=== PATIENT | female | born 1990 | race Caucasian/White ===

== ENCOUNTER 2020-12-19 14:17 | Outpatient (CLI) | payer OTHER ==
[2020-12-19 14:52] VITALS: BP 109/74
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
== END 2020-12-19 14:18 | disposition home or self-care (01) ==
LOC: SC 14:17
PROVIDERS: ATTEND Nurse Practitioner Family
DX: R06.83 Snoring (principal); R51.9 Headache, unspecified; R06.81 Apnea, not elsewhere classified; G47.8 Other sleep disorders; R41.89 Other symptoms and signs involving cognitive functions and awareness; G47.10 Hypersomnia, unspecified; E66.9 Obesity, unspecified; Z68.38 Body mass index [BMI] 38.0-38.9, adult
CPT/HCPCS: 99203; 99212

== ENCOUNTER 2021-01-15 10:10 | Emergency (ER) | payer OTHER ==
[2021-01-15 10:20] VITALS: BP 132/85
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
[2021-01-15] MEDS ORDERED: IBUPROFEN 600 MG TABLET PO STA (11:20)
[2021-01-15] MEDS ORDERED: ACETAMINOPHEN 325 MG TABLET PO STA (11:20)
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
== END 2021-01-15 13:11 | disposition home or self-care (01) ==
LOC: ED 10:10
DX: M54.6 Pain in thoracic spine (principal); V89.2XXD Person injured in unspecified motor-vehicle accident, traffic, subsequent encounter
CPT/HCPCS: 72125; 72128; 99283; 99284; A9270

== ENCOUNTER 2021-03-12 20:30 | Outpatient (CLI) | payer OTHER | END 2021-03-12 20:31 | disposition home or self-care (01) | LOC: SC 20:30 | PROVIDERS: ATTEND Nurse Practitioner Family | DX: R06.83 Snoring (principal); R06.81 Apnea, not elsewhere classified; G47.8 Other sleep disorders; R53.83 Other fatigue; G47.61 Periodic limb movement disorder; G47.10 Hypersomnia, unspecified; F81.9 Developmental disorder of scholastic skills, unspecified | CPT/HCPCS: 95810 ==

== ENCOUNTER 2021-03-28 13:41 | Outpatient (CLI) | payer OTHER ==
--- NOTE | 2021-03-28 13:50 | SLEEP CARE CONSULTATION ---
Information from patient questionnaire entered by Kady Velazquez MA. I have reviewed and concur with the information entered by Kady Velazquez MA. This document represents the service I personally performed and the decisions made by , Lyly Peres ARNP. History of Present Illness Service Date and Time: 03/28/2021 1340 Initial [place] Sleepiness Scale score: 16 (in 2020) Current [place] Sleepiness Scale score: 17 Additional HPI information: DEREK VAZQUEZ returns via video Telehealth visit for follow up and results of the recently performed polysomnography. The patient was informed of the following findings: No significant sleep disordered breathing with an average AHI of 2.7 and laith oxygen saturation of 90%. Patient had moderate periodic leg movements of sleep that did not interrupt her sleep pattern. I explained the pathophysiology behind obstructive sleep apnea. Patient does not have sleep apnea and was advised how weight gain could increase the risk of developing sleep apnea in the future. I strongly encouraged the patient to lose weight. Patient has light snoring. Snoring can be reduced by weight loss. Weight loss is best achieved with diet consult. Patient instructed to contact PCP for referral. Snoring can also be treated with an oral appliance from a dentist. Advised to check insurance coverage. In addition, an ENT evaluation can be do to see if other treatment is indicated. Patient counseled not drink alcohol less than 4 hours before bedtime as it can increase snoring and apnea. Patient was cautioned about risks of drowsy driving until sleepiness symptoms resolve. Sleep Study - Results Type of Sleep Study: Polysomnography Prior sleep studies: No Polysomnography/Home Sleep Study results: IMPRESSION: The quality of the study is good. The patient had slightly reduced sleep efficiency due to several awakenings at the beginning of the night. The sleep architecture was relatively normal considering the first-night effect. Respiratory monitoring showed no significant sleep disordered breathing sleep-disordered breathing (AHI = 2.7) ort hypoxia (laith oxygen saturation of 90%). The patient slept adequately in supine position (supine AHI = 2.1; non-supine = 3.59). Snore was light in intensity. There was moderate periodic leg movement of sleep not associated with sleep fragmentation. Cardiac rhythm was normal sinus rhythm without significant arrhythmia. No abnormal behavior (parasomnia) observed during the night. Allergies and Home Medications Home medication list reviewed: Yes (no changes) Review of Systems Review of systems same as previous: No (possible Covid w/ symptoms) Physical Exam Vital signs obtained and entered by: Telehealth visit to reduce exposure during Covid pandemic Height: 5 ft 9 in Impression and Plan 1. Periodic limb movement, moderate, that did not fragment patients sleep. Periodic limb movement of sleep (PLMS) is characterized by episodes of repetitive limb movements that occur during sleep and usually involve the lower limbs. The etiology is unknown but can be associated with restless leg syndrome (RLS), neuropathy, spinal cord diseases, kidney disease, rheumatological disorders, narcolepsy, obstructive sleep apnea, and REM sleep behavior disorder. Other factors that can increase PLMS and/or RLS are heredity and iron deficiency as reflected by a low serum ferritin level below 50 to 75mcg / L. Caffeine can also aggravate PLMS and should be avoided. Sleep hygiene methods can also improve sleep as well as lifestyle changes such as regular exercise. Patient was advised that no treatment is needed at this time. If symptoms increase, then further evaluation is indicated. 2. Snoring but no significant sleep disordered breathing. Patient advised that often weight loss will reduce snoring as well as apnea risk. An oral appliance can also be used for snoring. This would require a dental consultation. Patient cautioned not to use other online appliances as can cause bite issues. A list of accredited dentists in [facility] and one local dentist who makes oral appliances is available in the office. Patient is advised to check if insurance will cover. An ENT consult can also be helpful to determine if any other treatment is an option. * Attempt to lose weight * Avoid alcohol consumption near bedtime * The patient is cautioned about driving until sleepiness is completely resolved. * Return as needed for follow up. Counseling Topics: Weight loss health impact Visit Type: Telehealth Video Video Type: VSee Patient Location: Home Location of Provider: Office Patient agrees and consents to this telehealth visit type: Yes Patient agrees to have their insurance billed: Yes Time Spent with Patient (minutes): 10 Provider Statement: I spent 100% of the Telehealth Video Call with the patient with greater than 50% spent counseling the patient and coordination of care.
== END 2021-03-28 13:42 | disposition home or self-care (01) ==
LOC: SC 13:41
PROVIDERS: ATTEND Nurse Practitioner Family
DX: G47.61 Periodic limb movement disorder (principal); R06.83 Snoring

== ENCOUNTER 2021-06-20 11:48 | Outpatient (CLI) | payer OTHER ==
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
== END 2021-06-20 23:59 | disposition home or self-care (01) ==
LOC: DI.N 11:48
PROVIDERS: ATTEND Physician Assistant Medical
DX: J06.9 Acute upper respiratory infection, unspecified (principal); Z20.822 Contact with and (suspected) exposure to COVID-19

== ENCOUNTER 2021-06-24 19:21 | Emergency (ER) | payer OTHER ==
[2021-06-24 19:31] VITALS: BP 132/89
[2021-06-24 20:14] LABS: RAPID STREP SCREEN Negative (Negative)
--- NOTE | 2021-06-24 20:48 | ED Physician Documentation ---
PD HPI HEENT - Stated complaint Stated Complaint: SORE THROAT,BODY PX,FEVER - Chief complaint Chief Complaint: Resp - History obtained from History obtained from: Patient - Additional information Additional information: Previously healthy woman has been sick for about a week with cough, sore throat, fever, loss of voice. The cough is productive of yellow sputum. She has had a fever up to 101. She is COVID immunized but not boosted. She was seen in the clinic on Thursday, checked for COVID and strep which were negative and administered what sounds like dexamethasone without relief. She was also given a prescription for Tessalon which she is only taken 1 dose of. Review of Systems Constitutional: reports: Fever, Myalgias, Fatigue Nose: reports: Rhinorrhea / runny nose Throat: reports: Sore throat Respiratory: reports: Cough. denies: Dyspnea PD PAST MEDICAL HISTORY - Past Medical History Cardiovascular: None Respiratory: None Musculoskeletal: None - Present Medications Home Medications: Ambulatory Orders Medication Instructions Recorded Confirmed HYDROcod/ACETAM 5/325 [[place] 5/325] 1 ea PO Q6H PRN #18 tablet 01/15/21 Naproxen 500 mg PO BID 10 Days #20 tab 01/15/21 tiZANidine [Zanaflex] 4 mg PO Q8H PRN #25 tablet 01/15/21 Doxycycline Hyclate 100 mg PO BID #14 tab.sr 06/24/21 guaiFENesin/CODEINE [Robitussin AC] 5 - 10 ml PO Q6H PRN #120 ml 06/24/21 - Allergies Allergies/Adverse Reactions: Allergies Allergy/AdvReac Type Severity Reaction Status Date / Time No Known Drug Allergies Allergy Verified 06/24/21 19:31 - Social History Does the pt smoke?: No Smoking Status: Never smoker PD ED PE NORMAL - Vitals Vital signs reviewed: Yes - General General: Alert and oriented X 3, No acute distress - HEENT HEENT: PERRL, EOMI, Ears normal, Pharynx benign, Other (Large but noninflamed tonsils. Slightly laryngitic voice.) - Neck Neck: Supple, no meningeal sign, No bony TTP - Cardiac Cardiac: RRR, No murmur - Respiratory Respiratory: No respiratory distress, Clear bilaterally - Abdomen Abdomen: Non tender - Derm Derm: Normal color, Warm and dry, No rash - Neuro Neuro: Alert and oriented X 3, Normal speech Results - Vitals Vitals: Vital Signs - 24 hr 06/24/21 19:24 Temperature 36.9 C Heart Rate 95 Respiratory 20 Rate Blood Pressure 132/89 H O2 Saturation 99 Oxygen O2 Source Room air - Labs Labs: Laboratory Tests 06/24/21 06/24/21 19:45 19:45 Nasal Adenovirus (PCR) NOT DETECTED Nasal B. parapertussis DNA (PCR) NOT DETECTED Nasal Coronavir 229E PCR NOT DETECTED Nasal Coronavir HKU1 PCR NOT DETECTED Nasal Coronavir NL63 PCR NOT DETECTED Nasal Coronavir OC43 PCR NOT DETECTED Nasal Enterovir/Rhinovir PCR NOT DETECTED Nasal Influenza B PCR NOT DETECTED Nasal Influenza A PCR NOT DETECTED Nasal Parainfluen 1 PCR NOT DETECTED Nasal Parainfluen 2 PCR NOT DETECTED Nasal Parainfluen 3 PCR NOT DETECTED Nasal Parainfluen 4 PCR NOT DETECTED Nasal RSV (PCR) NOT DETECTED Nasal B.pertussis DNA PCR NOT DETECTED Nasal C.pneumoniae (PCR) NOT DETECTED Jeff Human Metapneumo PCR NOT DETECTED Nasal M.pneumoniae (PCR) NOT DETECTED Nasal SARS-CoV-2 (PCR) NOT DETECTED Group A Strep Rapid Negative PD MEDICAL DECISION MAKING - ED course ED course: 30-year-old woman presents for viral syndrome now with more productive cough. Her son tested positive today for human metapneumovirus so presume she started out with that and now has developed more of a bacterial bronchitis given her negative bio fire. Departure - Departure Disposition: 01 Home, Self Care Clinical Impression: Bronchitis Condition: Good Record reviewed to determine appropriate education?: Yes Instructions: ED Upper Resp Infec Abx Tx Prescriptions: Doxycycline Hyclate 100 mg PO BID #14 tab.sr guaiFENesin/CODEINE [Robitussin AC] 5 - 10 ml PO Q6H PRN #120 ml PRN Reason: Cough Comments: I sent your prescriptions electronically to [facility] in [place]. I suspect you had to the metapneumovirus that your son had but now with clear that and have developed bronchitis. For this I am prescribing some antibiotics and cough syrup. Cough syrup contains codeine, do not drink or drive with it. Return for new or worsening symptoms. Follow-up with your doctor towards the end of the week if not better. Discharge Date/Time: 06/24/21 21:14
[2021-06-24 20:58] LABS: B. PARAPERTUSSIS- RESP PCR PAN NOT DETECTED; B. PERTUSSIS- RESP PCR PANEL NOT DETECTED; C. PNEUMONIAE- RESP PCR PANEL NOT DETECTED; CORONAVIRUS 229E-RESP PCR NOT DETECTED; CORONAVIRUS HKU1-RESP PCR NOT DETECTED; CORONAVIRUS NL63-RESP PCR NOT DETECTED; CORONAVIRUS OC43-RESP PCR NOT DETECTED; HUMAN METAPNEUMOVIRUS NOT DETECTED; INFLUENZA A- RESP PCR PANEL NOT DETECTED; INFLUENZA B - RESP PCR PANEL NOT DETECTED; M. PNEUMONIAE- RESP PCR PANEL NOT DETECTED; PARAINFLUENZA VIRUS 1 NOT DETECTED; PARAINFLUENZA VIRUS 2 NOT DETECTED; PARAINFLUENZA VIRUS 3 NOT DETECTED; PARAINFLUENZA VIRUS 4 NOT DETECTED; RHINOVIRUS/ENTEROVIRUS NOT DETECTED; RSV- RESP PCR PANEL NOT DETECTED; SARS-CoV-2 -RESP PCR PANEL NOT DETECTED
[2021-06-24] MEDS ORDERED: guaiFENesin/CODEINE 5 ML UDC PO STA (21:06)
[2021-06-24] MEDS ORDERED: DOXYCYCLINE 100 MG TABLET PO STA (21:06)
== END 2021-06-24 21:14 | disposition home or self-care (01) ==
LOC: ED 19:21
DX: J40 Bronchitis, not specified as acute or chronic (principal); Z20.822 Contact with and (suspected) exposure to COVID-19
CPT/HCPCS: 87070; 87430; 87633; 99283; A9270

== ENCOUNTER 2021-06-27 05:25 | Emergency (ER) | payer OTHER ==
[2021-06-27 05:38] VITALS: BP 137/62
[2021-06-27] MEDS ORDERED: PENICILLIN VK 250 MG TABLET PO STA (06:18)
[2021-06-27] MEDS ORDERED: IBUPROFEN 800 MG TABLET PO STA (06:19)
--- NOTE | 2021-06-27 06:21 | ED Physician Documentation ---
History of Present Illness - Stated complaint Stated Complaint: SORE THROAT/CAN'T SLEEP - Chief complaint Chief Complaint: General - History obtained from History obtained from: Patient - Additonal information Additional information: Patient is a 30-year-old female who has been having a sore throat for 6 days. She was initially seen at [facility] walk[facility] and had a strep swab done. She was given Tessalon Perles and dexamethasone. She was then seen on Thursday and thought to have bronchitis and started on doxycycline. She has been taking the antibiotic but does not feel improved. She reports significant discomfort in her throat. She has been able to drink fluids but reports it is painful. She has been coughing and reports occasional vomiting after coughing but otherwise denies nausea. Denies fever, chest pain, shortness of breath, abdominal pain. Her son is also being evaluated with URI symptoms and was recently positive for human [place] pneumo virus Review of Systems Constitutional: denies: Fever Nose: denies: Congestion Throat: reports: Sore throat Cardiac: denies: Chest pain / pressure, Palpitations Respiratory: reports: Cough. denies: Dyspnea GI: reports: Vomiting. denies: Abdominal Pain, Nausea (Posttussive) Skin: denies: Rash Musculoskeletal: denies: Back pain Neurologic: denies: Headache PD PAST MEDICAL HISTORY - Past Medical History Cardiovascular: None Respiratory: None Musculoskeletal: None - Present Medications Home Medications: Ambulatory Orders Medication Instructions Recorded Confirmed HYDROcod/ACETAM 5/325 [[place] 5/325] 1 ea PO Q6H PRN #18 tablet 01/15/21 Naproxen 500 mg PO BID 10 Days #20 tab 01/15/21 tiZANidine [Zanaflex] 4 mg PO Q8H PRN #25 tablet 01/15/21 Doxycycline Hyclate 100 mg PO BID #14 tab.sr 06/24/21 guaiFENesin/CODEINE [Robitussin AC] 5 - 10 ml PO Q6H PRN #120 ml 06/24/21 Ibuprofen [Motrin] 800 mg PO Q8H PRN #30 tablet 06/27/21 Penicillin V Potassium 500 mg PO Q8HR 10 Days #30 tablet 06/27/21 - Allergies Allergies/Adverse Reactions: Allergies Allergy/AdvReac Type Severity Reaction Status Date / Time No Known Drug Allergies Allergy Verified 06/27/21 05:38 - Social History Does the pt smoke?: No Smoking Status: Never smoker PD ED PE NORMAL - General General: Alert and oriented X 3, No acute distress, Well developed/nourished - HEENT HEENT: Atraumatic, Other (Bilateral white tonsillar exudate, tonsillar enlargement, no signs of peritonsillar abscess, normal speech, patient is tolerating her secretions) - Neck Neck: Supple, no meningeal sign, Other (Right anterior cervical lymphadenopathy). No: No adenopathy - Cardiac Cardiac: RRR, No murmur, Strong equal pulses - Respiratory Respiratory: No respiratory distress, Clear bilaterally - Abdomen Abdomen: Soft, Non tender - Derm Derm: Normal color, No rash - Extremities Extremities: No edema - Neuro Neuro: Normal speech - Psych Psych: Normal mood, Normal affect Results - Vitals Vitals: Vital Signs - 24 hr 06/27/21 05:29 Temperature 36 C L Heart Rate 101 H Respiratory 18 Rate Blood Pressure 137/62 H O2 Saturation 97 Oxygen O2 Source Room air PD MEDICAL DECISION MAKING - ED course Complexity details: reviewed results, d/w patient ED course: Patient with sore throat not improving on doxycycline. On review of previous labs, her strep culture is positive. Patient has not been improving on doxycycline. While it can be used for strep infections we discussed changing the antibiotic to first-line agent as she has not been showing improvement. Patient is agreeable to this. She is also agreeable to trial of Motrin for pain and inflammation. Patient is able to tolerate p.o. There is no signs of oral abscess or airway compromise. Patient was encouraged to complete the new course of antibiotics as well as continue to hydrate. She is aware of return precautions. Departure - Departure Disposition: 01 Home, Self Care Clinical Impression: Strep pharyngitis Condition: Stable Instructions: ED Strep Pharyngitis Conf Prescriptions: Penicillin V Potassium 500 mg PO Q8HR 10 Days #30 tablet Ibuprofen [Motrin] 800 mg PO Q8H PRN #30 tablet PRN Reason: PAIN &/OR FEVER Comments: Ivet you were evaluated for your sore throat which has not been improving. Your strep culture earlier this week was positive. You had been started on an antibiotic which can cover for strep but it is not usually the first-line antibiotic used. As your symptoms have not improved we have discussed changing your antibiotic. Please stop taking the doxycycline. A prescription for penicillin was sent to the [facility] in [place]. Please start this antibiotic and finish the entire course. Please also use Motrin or Tylenol to help with any pain or discomfort. It is important to stay hydrated. Please drink small amounts of fluids frequently through the day as this may help with your pain and alleviate your cough. You can also try a small amount of honey to see if this helps with your cough. If anytime it seems that you are having trouble breathing or swallowing, have any concerns please return to the emergency department. Discharge Date/Time: 06/27/21 06:30
== END 2021-06-27 06:30 | disposition home or self-care (01) ==
LOC: ED 05:25
DX: J02.0 Streptococcal pharyngitis (principal)
CPT/HCPCS: 99282; 99284; A9270

== ENCOUNTER 2021-07-05 04:38 | Emergency (ER) | payer OTHER ==
[2021-07-05 04:47] VITALS: BP 145/75
[2021-07-05] MEDS ORDERED: predniSONE 20 MG TABLET PO STA (05:21)
[2021-07-05 05:26] LABS: RAPID STREP SCREEN Negative (Negative)
--- NOTE | 2021-07-05 05:26 | ED Physician Documentation ---
PD HPI HEENT - Stated complaint Stated Complaint: THROAT PX/COUGH - Chief complaint Chief Complaint: Heent - History obtained from History obtained from: Patient - Additional information Additional information: The patient comes to the emergency department chief complaint of ongoing sore throat and cough. She states that about 3 weeks ago, she began to have runny nose and cough With a mild sore throat. She was seen in the urgent care and was told that it was probably just viral or allergies. The patient was seen a couple of days later in the emergency department and a strep test was positive so she was started on doxycycline. She came back a few days after that and was told that her antibiotics should be switched and so she was put on penicillin VK. Patient took a 10-day course of this and finished it yesterday, but states that her cough is gotten worse. She also still has a sore throat. Patient has a little bit of congestion as well. She has 2 young children at home who also have asked upper respiratory type symptoms. The patient denies fevers or chills. She does not have any underlying medical problems. No shortness of breath. No vomiting or diarrhea. No other complaints at this time. Review of Systems Ten Systems: 10 systems reviewed and negative Constitutional: reports: Reviewed and negative Eyes: reports: Reviewed and negative Ears: reports: Reviewed and negative Nose: reports: Congestion Throat: reports: Sore throat Cardiac: reports: Reviewed and negative Respiratory: reports: Cough GI: reports: Reviewed and negative : reports: Reviewed and negative Skin: reports: Reviewed and negative Musculoskeletal: reports: Reviewed and negative Neurologic: reports: Reviewed and negative Psychiatric: reports: Reviewed and negative Endocrine: reports: Reviewed and negative Immunocompromised: reports: Reviewed and negative PD PAST MEDICAL HISTORY - Past Medical History Cardiovascular: None Respiratory: None Musculoskeletal: None - Present Medications Home Medications: Ambulatory Orders Medication Instructions Recorded Confirmed HYDROcod/ACETAM 5/325 [[place] 5/325] 1 ea PO Q6H PRN #18 tablet 01/15/21 07/05/21 Naproxen 500 mg PO BID 10 Days #20 tab 01/15/21 07/05/21 tiZANidine [Zanaflex] 4 mg PO Q8H PRN #25 tablet 01/15/21 07/05/21 Doxycycline Hyclate 100 mg PO BID #14 tab.sr 06/24/21 07/05/21 guaiFENesin/CODEINE [Robitussin AC] 5 - 10 ml PO Q6H PRN #120 ml 06/24/21 0 07/05/21 Ibuprofen [Motrin] 800 mg PO Q8H PRN #30 tablet 06/27/21 07/05/21 Penicillin V Potassium 500 mg PO Q8HR 10 Days #30 tablet 06/27/21 07/05/21 predniSONE [Deltasone] 60 mg PO DAILY 3 Days #9 tablet 07/05/21 - Allergies Allergies/Adverse Reactions: Allergies Allergy/AdvReac Type Severity Reaction Status Date / Time No Known Drug Allergies Allergy Verified 07/05/21 04:50 - Social History Does the pt smoke?: No Smoking Status: Never smoker PD ED PE NORMAL - Vitals Vital signs reviewed: Yes - General General: Alert and oriented X 3, No acute distress, Well developed/nourished - HEENT HEENT: Atraumatic, PERRL, EOMI, Moist mucous membranes, Pharynx benign - Neck Neck: Supple, no meningeal sign - Cardiac Cardiac: RRR, No murmur, Strong equal pulses - Respiratory Respiratory: No respiratory distress, Clear bilaterally - Derm Derm: Normal color, Warm and dry, No rash - Extremities Extremities: No deformity - Neuro Neuro: Alert and oriented X 3 - Psych Psych: Normal mood, Normal affect Results - Vitals Vitals: Vital Signs - 24 hr 07/05/21 04:42 Temperature 36 C L Heart Rate 100 Respiratory 18 Rate Blood Pressure 145/75 H O2 Saturation 98 Oxygen O2 Source Room air - Labs Labs: Laboratory Tests 07/05/21 07/05/21 05:01 05:01 Nasal Adenovirus (PCR) NOT DETECTED Nasal B. parapertussis DNA (PCR) NOT DETECTED Nasal Coronavir 229E PCR NOT DETECTED Nasal Coronavir HKU1 PCR NOT DETECTED Nasal Coronavir NL63 PCR NOT DETECTED Nasal Coronavir OC43 PCR NOT DETECTED Nasal Enterovir/Rhinovir PCR NOT DETECTED Nasal Influenza B PCR NOT DETECTED Nasal Influenza A PCR NOT DETECTED Nasal Parainfluen 1 PCR NOT DETECTED Nasal Parainfluen 2 PCR NOT DETECTED Nasal Parainfluen 3 PCR NOT DETECTED Nasal Parainfluen 4 PCR NOT DETECTED Nasal RSV (PCR) NOT DETECTED Nasal B.pertussis DNA PCR NOT DETECTED Nasal C.pneumoniae (PCR) NOT DETECTED Jeff Human Metapneumo PCR DETECTED A Nasal M.pneumoniae (PCR) NOT DETECTED Nasal SARS-CoV-2 (PCR) NOT DETECTED Group A Strep Rapid Negative PD MEDICAL DECISION MAKING - ED course Complexity details: considered differential, d/w patient ED course: The patient's throat was benign today. She had pictures on her phone from her throat before antibiotics and they showed enlarged, beefy red tonsils with white exudates, a very convincing picture for strep pharyngitis. I discussed with the patient that her throat appears to have drastically improved with antibiotics and there is no such appearance now. I suspect that the patient is likely picked up another viral illness, very likely from her children, and this is the reason for the uptick in cough. The patient is afebrile and in no respiratory distress and at this point, symptomatic management is advisable. We have sent a viral panel that is pending at this time. Rapid strep is also pending. The patient has been treated symptomatically with prednisone in the emergency department and will be given a prescription for the same. She is advised to follow-up with her primary care physician if she is not feeling better in a week. Departure - Departure Disposition: 01 Home, Self Care Clinical Impression: Upper respiratory infection Qualifiers: URI type: unspecified viral URI Qualified Code(s): J06.9 - Acute upper respiratory infection, unspecified Condition: Stable Instructions: ED URI Viral Prescriptions: predniSONE [Deltasone] 60 mg PO DAILY 3 Days #9 tablet Comments: A viral panel was sent and is positive for human metapneumovirus, and upper respiratory virus. Your strep test is negative. Your throat appears drastically better than it did in the pictures you have shown and does not at all have the appearance of strep at this time. In fact, your tonsils actually appear normal. There are many upper respiratory viruses going around right now, And many have the same symptoms. You may have started with another virus, then gotten strep on top of it, and then picked up something else. Additionally, the virus you have now is the same virus one of your kids had tested positive for earlier, and you probably picked up this illness from him. This will have to pass on its own. You may take ibuprofen, Tylenol, and cough preparations if you wish. A prescription for prednisone has been sent to [facility] in [place] to help with your throat discomfort. Please follow-up with your primary care physician if you are not feeling better after week.
[2021-07-05 06:00] LABS: B. PARAPERTUSSIS- RESP PCR PAN NOT DETECTED; B. PERTUSSIS- RESP PCR PANEL NOT DETECTED; C. PNEUMONIAE- RESP PCR PANEL NOT DETECTED; CORONAVIRUS 229E-RESP PCR NOT DETECTED; CORONAVIRUS HKU1-RESP PCR NOT DETECTED; CORONAVIRUS NL63-RESP PCR NOT DETECTED; CORONAVIRUS OC43-RESP PCR NOT DETECTED; HUMAN METAPNEUMOVIRUS DETECTED; INFLUENZA A- RESP PCR PANEL NOT DETECTED; INFLUENZA B - RESP PCR PANEL NOT DETECTED; M. PNEUMONIAE- RESP PCR PANEL NOT DETECTED; PARAINFLUENZA VIRUS 1 NOT DETECTED; PARAINFLUENZA VIRUS 2 NOT DETECTED; PARAINFLUENZA VIRUS 3 NOT DETECTED; PARAINFLUENZA VIRUS 4 NOT DETECTED; RHINOVIRUS/ENTEROVIRUS NOT DETECTED; RSV- RESP PCR PANEL NOT DETECTED; SARS-CoV-2 -RESP PCR PANEL NOT DETECTED
== END 2021-07-05 06:13 | disposition home or self-care (01) ==
LOC: ED 04:38
DX: J06.9 Acute upper respiratory infection, unspecified (principal); Z20.822 Contact with and (suspected) exposure to COVID-19
CPT/HCPCS: 87070; 87430; 87633; 99282; 99283; J7512

== ENCOUNTER 2021-07-10 15:55 | Outpatient (CLI) | payer OTHER ==
--- NOTE | 2021-07-10 16:22 | XRAY Report ---
PROCEDURE: Chest 2 View X-Ray INDICATIONS: FATIGUE AND MALAISE TECHNIQUE: 2 view(s) of the chest. COMPARISON: June 20, 2021 FINDINGS: SUPPORT DEVICES: None. LUNGS/PLEURA: Left lower lung zone plate atelectasis/scarring. No pleural effusion or space-occupying pneumothorax. MEDIASTINUM: The cardiomediastinal silhouette is within normal limits. BONES/SOFT TISSUES: No acute abnormality. IMPRESSION: 1.Left basilar plate atelectasis/scar. Reviewed by: Keven Cevallos MD on 07/10/2021 4:21 PM PDT Approved by: Keven Cevallos MD on 07/10/2021 4:21 PM PDT Station ID: [id number]
[2021-07-10 20:50] LABS: BASOPHILS # (AUTO) 0.1 10^3/uL (0.0-0.1); BASOPHILS % (AUTO) 0.4 %; EOSINOPHILS # (AUTO) 0.2 10^3/uL (0.0-0.7); EOSINOPHILS % (AUTO) 1.2 %; HCT - HEMATOCRIT 35.8 % (37.0-47.0); HGB - HEMOGLOBIN 11.7 g/dL (12.0-16.0); LYMPHOCYTES # (AUTO) 3.6 10^3/uL (1.5-3.5); LYMPHOCYTES % (AUTO) 23.9 %; MEAN CORPUSCULAR HEMOGLOBIN 29.5 pg (27.0-31.0); MEAN CORPUSCULAR HGB CONC 32.7 g/dL (32.0-36.0); MEAN CORPUSCULAR VOLUME 90.4 fL (81.0-99.0); MEAN PLATELET VOLUME 9.7 fL (7.9-10.8); MONOCYTES # (AUTO) 1.1 10^3/uL (0.0-1.0); MONOCYTES % (AUTO) 7.4 %; NEUTROPHILS # (AUTO) 10.2 10^3/uL (1.5-6.6); NEUTROPHILS % (AUTO) 66.6 %; PLT - PLATELET COUNT 509 10^3/uL (130-450); RED BLOOD COUNT 3.96 10^6/uL (4.20-5.40); RED CELL DISTRIBUTION WIDTH 14.3 % (12.0-15.0); WHITE BLOOD COUNT 15.3 x10^3/uL (4.8-10.8)
[2021-07-10 21:04] LABS: ALBUMIN 3.7 g/dL (3.2-5.5); ALKALINE PHOSPHATASE 74 IU/L (42-121); ALT ALANINE AMINOTRANSFERASE 16 IU/L (10-60); AST ASPARTATE AMINOTRANSFERASE 17 IU/L (10-42); BILIRUBIN,TOTAL 0.6 mg/dL (0.2-1.0); BUN - BLOOD UREA NITROGEN 14 mg/dL (6-20); CALCIUM 9.1 mg/dL (8.5-10.3); CARBON DIOXIDE - CO2 27 mmol/L (21-32); CHLORIDE 100 mmol/L (101-111); CREATININE 0.8 mg/dL (0.4-1.0); GFR - MDRD 84 (>89); GLUCOSE 130 mg/dL (70-100); POTASSIUM 3.7 mmol/L (3.5-5.0); SODIUM 136 mmol/L (135-145); TOTAL PROTEIN 7.5 g/dL (6.7-8.2)
[2021-07-10 21:05] LABS: CRP - C-REACTIVE PROTEIN < 1.0 mg/dL (0-1.0)
== END 2021-07-10 23:59 | disposition home or self-care (01) ==
LOC: DI.N 15:55
PROVIDERS: ATTEND Registered Nurse
DX: R53.83 Other fatigue (principal); R53.81 Other malaise; R05.1 Acute cough; R91.8 Other nonspecific abnormal finding of lung field
CPT/HCPCS: 36415; 80053; 85025; 85651; 86140

== ENCOUNTER 2021-08-13 11:22 | Outpatient (CLI) | payer OTHER ==
[2021-08-13 22:29] LABS: BACTERIAL VAGINOSIS DNA POSITIVE (NEGATIVE); CANDIDA GROUP DNA NEGATIVE (NEGATIVE); CANDIDA KRUSEI DNA NEGATIVE (NEGATIVE); TRICHOMONAS VAGINALIS DNA POSITIVE (NEGATIVE)
[2021-08-13 22:30] LABS: CANDIDA GLABRATA DNA NEGATIVE (NEGATIVE)
[2021-08-13 23:55] LABS: CHLAMYDIA TRACHOMATIS DNA NEGATIVE (NEGATIVE); NEISSERIA GONORRHOEAE DNA NEGATIVE (NEGATIVE)
== END 2021-08-13 11:23 | disposition home or self-care (01) ==
LOC: LAB.N 11:22
PROVIDERS: ATTEND Physician Assistant
DX: N76.0 Acute vaginitis (principal)
CPT/HCPCS: 81514; 87491; 87591; 87661

== ENCOUNTER 2022-02-04 17:29 | Emergency (ER) | payer OTHER ==
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
[2022-02-04 21:44] LABS: MUDS CUTOFF CONCENTRATIONS CUTOFF CONC BELOW:
[2022-02-04 21:46] LABS: BILIRUBIN,URINE NEGATIVE (NEGATIVE); GLUCOSE, URINE (UA) NEGATIVE (NEGATIVE); KETONES,URINE (UA) TRACE mg/dL (NEGATIVE); LEUKOCYTE ESTERASE, URINE NEGATIVE (NEGATIVE); NITRITE,URINE NEGATIVE (NEGATIVE); OCCULT BLOOD,URINE NEGATIVE (NEGATIVE); PROTEIN,URINE TRACE mg/dL (NEGATIVE); UROBILINOGEN,URINE 0.2 (NORMAL) E.U./dL (NORMAL)
[2022-02-04 21:50] LABS: CLARITY,URINE HAZY (CLEAR); HCG UR QUAL NEGATIVE
[2022-02-04 21:57] LABS: BACTERIA,URINE Few /HPF (None Seen); MUCUS,URINE Moderate Strands; RBC,URINE 0-5 /HPF (0-5); SQUAMOUS EPITHELIAL CELL,UR MANY Squamous (<= Few); WBC,URINE 0-3 /HPF (0-5)
[2022-02-04 21:59] LABS: AMPHETAMINE SCREEN,URINE NEGATIVE (NEGATIVE); BARBITURATE SCREEN,UR NEGATIVE (NEGATIVE); BENZODIAZEPINES SCREEN, URINE NEGATIVE (NEGATIVE); COCAINE SCREEN URINE NEGATIVE (NEGATIVE); METHADONE SCREEN, URINE NEGATIVE (NEGATIVE); METHAMPHETAMINES SCREEN, URINE NEGATIVE (NEGATIVE); OPIATE SCREEN, URINE NEGATIVE (NEGATIVE); OXYCODONE SCREEN, URINE NEGATIVE (NEGATIVE); PROPOXYPHENE SCREEN, URINE NEGATIVE (NEGATIVE); THC CANNABINOID SCREEN, URINE NEGATIVE (NEGATIVE); TRICYCLIC ANTIDEPRESSANT,URINE NEGATIVE (NEGATIVE)
[2022-02-04] MEDS ORDERED: LIDOCAINE 1% 2 ML VIAL MC ONE (22:22)
[2022-02-04] MEDS ORDERED: cefTRIAXone 500 MG VIAL IM STA (22:22)
[2022-02-04] MEDS ORDERED: AZITHROMYCIN 250 MG TABLET PO STA (22:22)
[2022-02-04] MEDS ORDERED: metroNIDAZOLE 250 MG TABLET PO STA (22:23)
[2022-02-04 22:54] VITALS: BP 130/99
== END 2022-02-04 22:51 | disposition home or self-care (01) ==
LOC: ED 17:29
DX: Z04.41 Encounter for examination and observation following alleged adult rape (principal)
CPT/HCPCS: 80306; 81001; 81025; 99283; 99284; A9270; 81003; 87086

== ENCOUNTER 2022-05-08 13:19 | Emergency (ER) | payer MEDICAID, OTHER ==
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
--- OUTSIDE RECORDS SUMMARY | 2022-05-08 14:01 | EXTERNAL MEDICAL SUMMARY RPT | Continuity of Care Document ---
:1990 Author Organization [facility] Address [address] [place] [address] Phone Care Team Providers Name Role Phone Catherine Corona Unavailable Unavailable Allergies No information. Encounters No information. Functional Status No information. Immunizations No information. 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 Results/Labs test date author facility value unit interpret ation Result panel 1 (unknown) (no date) (unknown) [facility] unknown) Result panel 2 (unknown) (no date) (unknown) [facility]) Result panel 3 (unknown) (no date) (unknown) [facility]) Result panel 4 (unknown) (no (unknown) (unknown) (no value) (units (unk nown) date) unknown) (unknown) (no (unknown) (unknown) 05/06/22 (units (unkno wn) date) unknown) (unknown) (no (unknown) (unknown) 2080 (units (unkno wn) date) unknown) (unknown) (no (unknown) (unknown) Age/Sex: 31 / F (units (unknown) date) Date of Service: unknown) (unknown) (no (unknown) (unknown) Allergies (units (unkn own) date) unknown) (unknown) (no (unknown) (unknown) [facility] (units (unknown) date) Medicine unknown) (unknown) (no (unknown) (unknown) [place] (units ( unknown) date) [id number] unknown) (unknown) (no (unknown) (unknown) Attending Dr: (units ( unknown) date) Catherine Perry unknown) Cj Olvera (unknown) (no (unknown) (unknown) : 1990 (units (unknown) date) Acct:[id number] unknown) (unknown) (no (unknown) (unknown) Dept at (units (unkno wn) date) . unknown) (unknown) (no (unknown) (unknown) Documented By: (units (unknown) date) Catherine Corona unknown) 05/06/22 1220 (unknown) (no (unknown) (unknown) Draft (units (unkno wn) date) unknown) (unknown) (no (unknown) (unknown) Healthy adult (units ( unknown) date) unknown) (unknown) (no (unknown) (unknown) Intake Note: (units (u nknown) date) unknown) (unknown) (no (unknown) (unknown) Intake performed (units (unknown) date) by: unknown) Ab Alaniz (unknown) (no (unknown) (unknown) Intake (units (unkno wn) date) unknown) (unknown) (no (unknown) (unknown) Intake- Clincial (units (unknown) date) Staff unknown) (unknown) (no (unknown) (unknown) Loc: [facility] (units (unkno wn) date) unknown) (unknown) (no (unknown) (unknown) Medical History (units (unknown) date) (Reviewed unknown) 11/09/20 @ 08:14 by Alvin Magallanes DO) (unknown) (no (unknown) (unknown) Medications (units (un known) date) unknown) (unknown) (no (unknown) (unknown) No Known Drug (units ( unknown) date) Allergies Allergy unknown) (Verified 05/06/22 12:21) (unknown) (no (unknown) (unknown) No Known Home (units ( unknown) date) Medications unknown) 05/06/22 [History Confirmed 05/06/22] (unknown) (no (unknown) (unknown) PFSH (units (unkno wn) date) unknown) (unknown) (no (unknown) (unknown) Patient: (units (unkno wn) date) Ivet Tripp MR#: unknown) [id number] (unknown) (no (unknown) (unknown) Pt presents with (units (unknown) date) sore throat, unknown) congestion, cough, loss of taste and smell. Needs (unknown) (no (unknown) (unknown) Reason For Visit (units (unknown) date) unknown) (unknown) (no (unknown) (unknown) Signed By: (units (unk nown) date) unknown) (unknown) (no (unknown) (unknown) Smoking Status: (units (unknown) date) Never smoker unknown) (unknown) (no (unknown) (unknown) Social History (units (unknown) date) unknown) (unknown) (no (unknown) (unknown) This note may (units ( unknown) date) have been all or unknown) partially generated using voice recognition (unknown) (no (unknown) (unknown) Tobacco + (units (unkn own) date) Substance Use unknown) (unknown) (no (unknown) (unknown) Tobacco Status (units (unknown) date) unknown) (unknown) (no (unknown) (unknown) 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 (units (un known) date) unknown) (unknown) (no (unknown) (unknown) have occurred. (units (unknown) date) If there are any unknown) questions, please contact the Medical Records (unknown) (no (unknown) (unknown) lives (units (unkno wn) date) independently: unknown) Yes (unknown) (no (unknown) (unknown) may occur. (units (unk nown) date) Occasional unknown) wrong-word or 'sound-alike' substitutions may have (unknown) (no (unknown) (unknown) occurred due to (units (unknown) date) the inherent unknown) limitations of voice recognition software. Please (unknown) (no (unknown) (unknown) read the note (units ( unknown) date) carefully and unknown) recognize, using context, where these substitutions (unknown) (no (unknown) (unknown) software. (units (unkn own) date) Although every unknown) effort is made to edit content, automatic clipper errors Result panel 5 (unknown) (no (unknown) (unknown) (no value) (units (unk nown) date) unknown) (unknown) (no (unknown) (unknown) 05/06/22 (units (unkno wn) date) unknown) (unknown) (no (unknown) (unknown) 12:26 (units (unkno wn) date) unknown) (unknown) (no (unknown) (unknown) 2080 (units (unkno wn) date) unknown) (unknown) (no (unknown) (unknown) Age/Sex: 31 / F (units (unknown) date) Date of Service: unknown) (unknown) (no (unknown) (unknown) Allergies (units (unkn own) date) unknown) (unknown) (no (unknown) (unknown) [facility] (units (unknown) date) Medicine unknown) (unknown) (no (unknown) (unknown) [place] (units ( unknown) date) [id number] unknown) (unknown) (no (unknown) (unknown) Assessment + (units (u nknown) date) Plan unknown) (unknown) (no (unknown) (unknown) Attending Dr: (units ( unknown) date) Catherine Perry unknown) Cj WangA-C (unknown) (no (unknown) (unknown) BMI 41.6 (units (unkno wn) date) unknown) (unknown) (no (unknown) (unknown) BP 116/72 (units (unkn own) date) unknown) (unknown) (no (unknown) (unknown) Blood Pressure (units (unknown) date) Location Lt unknown) brachial (unknown) (no (unknown) (unknown) Covid-19 + FLU (units (unknown) date) A/B + RSV - PCR unknown) Today R05.1 - Acute cough (unknown) (no (unknown) (unknown) : 1990 (units (unknown) date) Acct:[id number] unknown) (unknown) (no (unknown) (unknown) Dept at (units (unkno wn) date) . unknown) (unknown) (no (unknown) (unknown) Documented By: (units (unknown) date) Catherine Corona unknown) 05/06/22 1220 (unknown) (no (unknown) (unknown) Draft (units (unkno wn) date) unknown) (unknown) (no (unknown) (unknown) Healthy adult (units ( unknown) date) unknown) (unknown) (no (unknown) (unknown) Height 5 ft 9 in (units (unknown) date) unknown) (unknown) (no (unknown) (unknown) Intake Note: (units (u nknown) date) unknown) (unknown) (no (unknown) (unknown) Intake performed (units (unknown) date) by: unknown) Ab Alaniz (unknown) (no (unknown) (unknown) Intake (units (unkno wn) date) unknown) (unknown) (no (unknown) (unknown) Intake- Clincial (units (unknown) date) Staff unknown) (unknown) (no (unknown) (unknown) Loc: [facility] (units (unkno wn) date) unknown) (unknown) (no (unknown) (unknown) Medical History (units (unknown) date) (Reviewed unknown) 11/09/20 @ 08:14 by Alvin Magallanes DO) (unknown) (no (unknown) (unknown) Medications (units (un known) date) unknown) (unknown) (no (unknown) (unknown) No Known Drug (units ( unknown) date) Allergies Allergy unknown) (Verified 05/06/22 12:21) (unknown) (no (unknown) (unknown) No Known Home (units ( unknown) date) Medications unknown) 05/06/22 [History Confirmed 05/06/22] (unknown) (no (unknown) (unknown) Orders (units (unkno wn) date) unknown) (unknown) (no (unknown) (unknown) Orders: (units (unkno wn) date) unknown) (unknown) (no (unknown) (unknown) PFSH (units (unkno wn) date) unknown) (unknown) (no (unknown) (unknown) Patient: (units (unkno wn) date) Ivet Tripp MR#: unknown) [id number] (unknown) (no (unknown) (unknown) Position Sitting (units (unknown) date) unknown) (unknown) (no (unknown) (unknown) Pt presents with (units (unknown) date) sore throat, unknown) congestion, cough, loss of taste and smell. Needs (unknown) (no (unknown) (unknown) Pulse 120 H (units (un known) date) unknown) (unknown) (no (unknown) (unknown) Pulse Source (units (u nknown) date) Monitor unknown) (unknown) (no (unknown) (unknown) Reason For Visit (units (unknown) date) unknown) (unknown) (no (unknown) (unknown) Respiration 16 (units (unknown) date) unknown) (unknown) (no (unknown) (unknown) Signed By: (units (unk nown) date) unknown) (unknown) (no (unknown) (unknown) Smoking Status: (units (unknown) date) Never smoker unknown) (unknown) (no (unknown) (unknown) Social History (units (unknown) date) unknown) (unknown) (no (unknown) (unknown) Temp 98.5 F (units (un known) date) unknown) (unknown) (no (unknown) (unknown) Temp Source Oral (units (unknown) date) unknown) (unknown) (no (unknown) (unknown) This note may (units ( unknown) date) have been all or unknown) partially generated using voice recognition (unknown) (no (unknown) (unknown) Tobacco + (units (unkn own) date) Substance Use unknown) (unknown) (no (unknown) (unknown) Tobacco Status (units (unknown) date) unknown) (unknown) (no (unknown) (unknown) 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 (units (un known) date) unknown) (unknown) (no (unknown) (unknown) have occurred. (units (unknown) date) If there are any unknown) questions, please contact the Medical Records (unknown) (no (unknown) (unknown) lives (units (unkno wn) date) independently: unknown) Yes (unknown) (no (unknown) (unknown) may occur. (units (unk nown) date) Occasional unknown) wrong-word or 'sound-alike' substitutions may have (unknown) (no (unknown) (unknown) occurred due to (units (unknown) date) the inherent unknown) limitations of voice recognition software. Please (unknown) (no (unknown) (unknown) read the note (units ( unknown) date) carefully and unknown) recognize, using context, where these substitutions (unknown) (no (unknown) (unknown) software. (units (unkn own) date) Although every unknown) effort is made to edit content, automatic clipper errors Result panel 6 (unknown) (no (unknown) (unknown) (no value) (units (unk nown) date) unknown) (unknown) (no (unknown) (unknown) (1) URI (upper (units (unknown) date) respiratory unknown) infection): (unknown) (no (unknown) (unknown) 05/06/22 1255 (units ( unknown) date) unknown) (unknown) (no (unknown) (unknown) 05/06/22 (units (unkno wn) date) unknown) (unknown) (no (unknown) (unknown) 12:26 05/06/22 (units (unknown) date) unknown) (unknown) (no (unknown) (unknown) 12:54 (units (unkno wn) date) unknown) (unknown) (no (unknown) (unknown) 2080 (units (unkno wn) date) unknown) (unknown) (no (unknown) (unknown) Age/Sex: 31 / F (units (unknown) date) Date of Service: unknown) (unknown) (no (unknown) (unknown) Allergies (units (unkn own) date) unknown) (unknown) (no (unknown) (unknown) [facility] (units (unknown) date) Medicine unknown) (unknown) (no (unknown) (unknown) [place], [place] (units ( unknown) date) [id number] unknown) (unknown) (no (unknown) (unknown) Assessment + Plan (units (unknown) date) unknown) (unknown) (no (unknown) (unknown) Attending Dr: (units ( unknown) date) Catherine Corona unknown) P.A-C (unknown) (no (unknown) (unknown) BMI 41.6 (units (unkno wn) date) unknown) (unknown) (no (unknown) (unknown) BP 116/72 (units (unkn own) date) unknown) (unknown) (no (unknown) (unknown) Blood Pressure (units (unknown) date) Location Lt unknown) brachial (unknown) (no (unknown) (unknown) CARDIOVASCULAR: (units (unknown) date) rate is unknown) tachycardic and regular rhythm present without murmurs, (unknown) (no (unknown) (unknown) Chief Complaint (units (unknown) date) unknown) (unknown) (no (unknown) (unknown) Chief Complaint: (units (unknown) date) body aches x 1 day unknown) (unknown) (no (unknown) (unknown) Covid-19 + FLU (units (unknown) date) A/B + RSV - PCR unknown) Today R05.1 - Acute cough (unknown) (no (unknown) (unknown) : 1990 (units (unknown) date) Acct:[id number] unknown) (unknown) (no (unknown) (unknown) Dept at (units (unkno wn) date) . unknown) (unknown) (no (unknown) (unknown) Details: (units (unkno wn) date) unknown) (unknown) (no (unknown) (unknown) Discussed with (units (unknown) date) patient that her unknown) condition is likely due to a viral illness. We (unknown) (no (unknown) (unknown) Documented By: (units (unknown) date) Catherine Corona unknown) 05/06/22 1220 (unknown) (no (unknown) (unknown) ENT: Nose with (units (unknown) date) rhinorrhea. Nasal unknown) mucosa edematous with erythema. Nares are (unknown) (no (unknown) (unknown) EYES: Pupils (units (u nknown) date) equal round and unknown) reactive. Extraocular motions intact. No scleral (unknown) (no (unknown) (unknown) Exam Narrative (units (unknown) date) unknown) (unknown) (no (unknown) (unknown) Exam Narrative: (units (unknown) date) unknown) (unknown) (no (unknown) (unknown) Exam (units (unkno wn) date) unknown) (unknown) (no (unknown) (unknown) GENERAL: 31 year (units (unknown) date) old patient unknown) appears stated age. Well-developed patient, in no (unknown) (no (unknown) (unknown) HEAD: Atraumatic. (units (unknown) date) Normocephalic. unknown) (unknown) (no (unknown) (unknown) HPI (units (unkno wn) date) unknown) (unknown) (no (unknown) (unknown) Healthy adult (units ( unknown) date) unknown) (unknown) (no (unknown) (unknown) Height 175.26 cm (units (unknown) date) unknown) (unknown) (no (unknown) (unknown) Intake Note: (units (u nknown) date) unknown) (unknown) (no (unknown) (unknown) Intake performed (units (unknown) date) by: Ab Alaniz unknown) (unknown) (no (unknown) (unknown) Intake (units (unkno wn) date) unknown) (unknown) (no (unknown) (unknown) Intake- Clincial (units (unknown) date) Staff unknown) (unknown) (no (unknown) (unknown) Loc: [facility] (units (unkno wn) date) unknown) (unknown) (no (unknown) (unknown) Medical History (units (unknown) date) (Reviewed 05/06/22 unknown) @ 12:50 by Catherine Corona PA-C) (unknown) (no (unknown) (unknown) Medications (units (un known) date) unknown) (unknown) (no (unknown) (unknown) NECK: Trachea (units ( unknown) date) midline. Non unknown) tender, No cervical, peritonsillar, submandibular (unknown) (no (unknown) (unknown) NEURO: AOx3. (units (u nknown) date) unknown) (unknown) (no (unknown) (unknown) No Known Drug (units ( unknown) date) Allergies Allergy unknown) (Verified 05/06/22 12:21) (unknown) (no (unknown) (unknown) No Known Home (units ( unknown) date) Medications unknown) 05/06/22 [History Confirmed 05/06/22] (unknown) (no (unknown) (unknown) Orders (units (unkno wn) date) unknown) (unknown) (no (unknown) (unknown) Orders: (units (unkno wn) date) unknown) (unknown) (no (unknown) (unknown) Oxygen Delivery (units (unknown) date) Method room air unknown) (unknown) (no (unknown) (unknown) PFSH (units (unkno wn) date) unknown) (unknown) (no (unknown) (unknown) Patient is a (units (un known) date) 31-year-old female unknown) reporting for evaluation of sore throat and body (unknown) (no (unknown) (unknown) Patient: (units (unkno wn) date) Ivet Tripp MR#: unknown) [id number] (unknown) (no (unknown) (unknown) Per HPI (units (unkno wn) date) unknown) (unknown) (no (unknown) (unknown) Plan (units (unkno wn) date) unknown) (unknown) (no (unknown) (unknown) Position Sitting (units (unknown) date) unknown) (unknown) (no (unknown) (unknown) Pt presents with (units (unknown) date) sore throat, unknown) congestion, cough, loss of taste and smell. Needs (unknown) (no (unknown) (unknown) Pulse 120 H 115 H (units (unknown) date) unknown) (unknown) (no (unknown) (unknown) Pulse Oximetry (units (unknown) date) (%) 97 unknown) (unknown) (no (unknown) (unknown) Pulse Source (units (u nknown) date) Monitor unknown) (unknown) (no (unknown) (unknown) Qualifiers: (units (un known) date) unknown) (unknown) (no (unknown) (unknown) RESPIRATORY: Clear (units (unknown) date) to auscultation. unknown) Breath sounds equal bilaterally. No wheezes, (unknown) (no (unknown) (unknown) ROS Narrative (units ( unknown) date) unknown) (unknown) (no (unknown) (unknown) ROS Narrative: (units (unknown) date) unknown) (unknown) (no (unknown) (unknown) ROS (units (unkno wn) date) unknown) (unknown) (no (unknown) (unknown) Reason For Visit (units (unknown) date) unknown) (unknown) (no (unknown) (unknown) Respiration 16 (units (unknown) date) unknown) (unknown) (no (unknown) (unknown) SKIN: No rash or (units (unknown) date) erythema of unknown) visible areas (unknown) (no (unknown) (unknown) Signed By: (units (unk nown) date) <Electronically unknown) signed by Catherine Corona> (unknown) (no (unknown) (unknown) Signed (units (unkno wn) date) unknown) (unknown) (no (unknown) (unknown) Smoking Status: (units (unknown) date) Never smoker unknown) (unknown) (no (unknown) (unknown) Social History (units (unknown) date) unknown) (unknown) (no (unknown) (unknown) Temp 98.5 F (units (un known) date) unknown) (unknown) (no (unknown) (unknown) Temp Source Oral (units (unknown) date) unknown) (unknown) (no (unknown) (unknown) This note may (units ( unknown) date) have been all or unknown) partially generated using voice recognition (unknown) (no (unknown) (unknown) Tobacco + (units (unkn own) date) Substance Use unknown) (unknown) (no (unknown) (unknown) Tobacco Status (units (unknown) date) unknown) (unknown) (no (unknown) (unknown) URI type: (units (unkn own) date) unspecified viral unknown) URI Qualified Code(s): J06.9 - Acute upper (unknown) (no (unknown) (unknown) 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 (units (un known) date) unknown) (unknown) (no (unknown) (unknown) abdominal pain (units (unknown) date) nausea or unknown) vomiting. On noting that her heart rate was somewhat (unknown) (no (unknown) (unknown) aches x 2 days. (units (unknown) date) She reports that unknown) her at home COVID test was negative, but she (unknown) (no (unknown) (unknown) acute distress. (units (unknown) date) unknown) (unknown) (no (unknown) (unknown) and smell in her (units (unknown) date) mild sense of unknown) shortness of breath. We did discuss that with (unknown) (no (unknown) (unknown) canals clear (units (u nknown) date) bilaterally. unknown) Pinna, tragus are non tender to palpation. (unknown) (no (unknown) (unknown) condition has been (units (unknown) date) chronically stable unknown) for the last several years with on and off (unknown) (no (unknown) (unknown) cone of light and (units (unknown) date) fluid behind the unknown) left eardrum noted no bulging or erythema, (unknown) (no (unknown) (unknown) did discuss that (units (unknown) date) it seems likely unknown) she may have COVID based on her lack of taste (unknown) (no (unknown) (unknown) figure out what (units (unknown) date) may be causing unknown) this. We are sending out viral respiratory panel (unknown) (no (unknown) (unknown) follow up for (units ( unknown) date) emergent care. I unknown) also discussed the importance of her following (unknown) (no (unknown) (unknown) for the last (units (u nknown) date) several years and unknown) it seems to be exacerbated by anxiety. She says (unknown) (no (unknown) (unknown) gallops, or rubs. (units (unknown) date) unknown) (unknown) (no (unknown) (unknown) have occurred. If (units (unknown) date) there are any unknown) questions, please contact the Medical Records (unknown) (no (unknown) (unknown) having a primary (units (unknown) date) care physician she unknown) denies having investigation into this (unknown) (no (unknown) (unknown) her history of (units (unknown) date) elevated heart unknown) rate, she needs to monitor symptoms and if her (unknown) (no (unknown) (unknown) hypertrophy or (units ( unknown) date) exudate noted. unknown) Airway patent. TM visualized bilaterally with good (unknown) (no (unknown) (unknown) ibuprofen and (units ( unknown) date) Tylenol. She unknown) denies ear pain and denies fever as well. She says (unknown) (no (unknown) (unknown) icterus. No (units (un known) date) injection or unknown) drainage. (unknown) (no (unknown) (unknown) it does not seem (units (unknown) date) higher than it unknown) usually does when it jumps up. She denies (unknown) (no (unknown) (unknown) lives (units (unkno wn) date) independently: Yes unknown) (unknown) (no (unknown) (unknown) lymphadenopathy (units (unknown) date) unknown) (unknown) (no (unknown) (unknown) may occur. (units (unk nown) date) Occasional unknown) wrong-word or 'sound-alike' substitutions may have (unknown) (no (unknown) (unknown) needs to follow (units (unknown) date) up in the unknown) emergency room for further evaluation. We discussed (unknown) (no (unknown) (unknown) notes she has (units ( unknown) date) lost her sense of unknown) taste and smell, and reports some difficulty (unknown) (no (unknown) (unknown) occurred due to (units (unknown) date) the inherent unknown) limitations of voice recognition software. Please (unknown) (no (unknown) (unknown) palpitations. (units ( unknown) date) However, if there unknown) is a change to her condition she needs to (unknown) (no (unknown) (unknown) rales, or (units (unkn own) date) rhonchi. unknown) (unknown) (no (unknown) (unknown) read the note (units ( unknown) date) carefully and unknown) recognize, using context, where these substitutions (unknown) (no (unknown) (unknown) respiratory (units (un known) date) infection, unknown) unspecified (unknown) (no (unknown) (unknown) she is been (units (un known) date) feeling some unknown) chills and stay home from work today. She denies (unknown) (no (unknown) (unknown) shortness of (units (u nknown) date) breath worsens or unknown) her heart rate seemed to increase in rate, she (unknown) (no (unknown) (unknown) software. (units (unkn own) date) Although every unknown) effort is made to edit content, automatic clipper errors (unknown) (no (unknown) (unknown) tachycardic at (units ( unknown) date) 1:15 a.m., she unknown) notes that she has an elevated heart rate often on (unknown) (no (unknown) (unknown) that she does not (units (unknown) date) likely need unknown) emergent intervention at this point because this (unknown) (no (unknown) (unknown) to test for (units (un known) date) COVID, flu, RSV. unknown) (unknown) (no (unknown) (unknown) up with a primary (units (unknown) date) care physician to unknown) monitor this condition and do testing to (unknown) (no (unknown) (unknown) with deep (units (unkn own) date) inspiration. She unknown) reports coughing and says she is been taking (unknown) (no (unknown) (unknown) without bleeding (units (unknown) date) or purulent unknown) drainage. Throat with mild erythema, No tonsillar Result panel 7 (unknown) (no date) (unknown) (unknown) Flu A (units (unkn own) NEGATIVE unknown) (unknown) (no date) (unknown) (unknown) Flu B (units (unkn own) NEGATIVE unknown) (unknown) (no date) (unknown) (unknown) Negative (units (unkn own) unknown) (unknown) (no date) (unknown) (unknown) Negative (units (unkn own) unknown) Result panel 8 (unknown) (no (unknown) (unknown) (no value) (units (unk nown) date) unknown) (unknown) (no (unknown) (unknown) 05/08/22 (units (unkno wn) date) unknown) (unknown) (no (unknown) (unknown) 2080 (units (unkno wn) date) unknown) (unknown) (no (unknown) (unknown) Age/Sex: 31 / F (units (unknown) date) Date of Service: unknown) (unknown) (no (unknown) (unknown) Allergies (units (unkn own) date) unknown) (unknown) (no (unknown) (unknown) [facility] (units (unknown) date) Medicine unknown) (unknown) (no (unknown) (unknown) [place], [place] (units ( unknown) date) [id number] unknown) (unknown) (no (unknown) (unknown) Attending Dr: (units ( unknown) date) Alvin Navarro unknown) [employer]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 (unknown) (no (unknown) (unknown) Draft (units (unkno wn) date) unknown) (unknown) (no (unknown) (unknown) Healthy adult (units ( unknown) date) unknown) (unknown) (no (unknown) (unknown) Intake Note: (units (u nknown) date) unknown) (unknown) (no (unknown) (unknown) Intake performed (units (unknown) date) by: Mango Hogan unknown) (unknown) (no (unknown) (unknown) Intake (units (unkno wn) date) unknown) (unknown) (no (unknown) (unknown) Intake- Clincial (units (unknown) date) Staff unknown) (unknown) (no (unknown) (unknown) Loc: [facility] (units (unkno wn) date) unknown) (unknown) (no (unknown) (unknown) Medical History (units (unknown) date) (Reviewed unknown) 05/06/22 @ 12:50 by Catherine Corona PA-C) (unknown) (no (unknown) (unknown) No Known Drug (units ( unknown) date) Allergies Allergy unknown) (Verified 05/06/22 12:21) (unknown) (no (unknown) (unknown) PFSH (units (unkno wn) date) unknown) (unknown) (no (unknown) (unknown) Patient: (units (unkno wn) date) Ivet Tripp MR#: unknown) [id number] (unknown) (no (unknown) (unknown) Reason For Visit (units (unknown) date) unknown) (unknown) (no (unknown) (unknown) Signed By: (units (unk nown) date) unknown) (unknown) (no (unknown) (unknown) Smoking Status: (units (unknown) date) Never smoker unknown) (unknown) (no (unknown) (unknown) Social History (units (unknown) date) unknown) (unknown) (no (unknown) (unknown) This note may (units ( unknown) date) have been all or unknown) partially generated using voice recognition (unknown) (no (unknown) (unknown) Tobacco + (units (unkn own) date) Substance Use unknown) (unknown) (no (unknown) (unknown) Tobacco Status (units (unknown) date) unknown) (unknown) (no (unknown) (unknown) Visit Reasons: (units (unknown) date) congestion eye unknown) itchy, puss and red, RAMIRES (unknown) (no (unknown) (unknown) [facility] In Clinic (units (unknown) date) Visit unknown) (unknown) (no (unknown) (unknown) have occurred. (units (unknown) date) If there are any unknown) questions, please contact the Medical Records (unknown) (no (unknown) (unknown) lives (units (unkno wn) date) independently: unknown) Yes (unknown) (no (unknown) (unknown) may occur. (units (unk nown) date) Occasional unknown) wrong-word or 'sound-alike' substitutions may have (unknown) (no (unknown) (unknown) no fever (units (unkno wn) date) unknown) (unknown) (no (unknown) (unknown) occurred due to (units (unknown) date) the inherent unknown) limitations of voice recognition software. Please (unknown) (no (unknown) (unknown) pt has been (units (un known) date) dealing with unknown) symptoms since thursday (unknown) (no (unknown) (unknown) pt has been (units (un known) date) having a unknown) worsening cough at night (unknown) (no (unknown) (unknown) pt has been (units (un known) date) having fatigue unknown) and bodyaches (unknown) (no (unknown) (unknown) pt is here for (units (unknown) date) ongoing unknown) congestion, crusty eyes, itching and redness (unknown) (no (unknown) (unknown) read the note (units ( unknown) date) carefully and unknown) recognize, using context, where these substitutions (unknown) (no (unknown) (unknown) software. (units (unkn own) date) Although every unknown) effort is made to edit content, automatic clipper errors Result panel 9 (unknown) (no (unknown) (unknown) (no value) (units (unk nown) date) unknown) (unknown) (no (unknown) (unknown) 05/08/22 (units (unkno wn) date) unknown) (unknown) (no (unknown) (unknown) 2080 (units (unkno wn) date) unknown) (unknown) (no (unknown) (unknown) Age/Sex: 31 / F (units (unknown) date) Date of Service: unknown) (unknown) (no (unknown) (unknown) Allergies (units (unkn own) date) unknown) (unknown) (no (unknown) (unknown) [facility] (units (unknown) date) Medicine unknown) (unknown) (no (unknown) (unknown) [place] (units ( unknown) date) [id number] unknown) (unknown) (no (unknown) (unknown) Attending Dr: (units ( unknown) date) Alvin Navarro unknown) PAZ (unknown) (no (unknown) (unknown) : 1990 (units (unknown) date) Acct:[id number] unknown) (unknown) (no (unknown) (unknown) Dept at (units (unkno wn) date) . unknown) (unknown) (no (unknown) (unknown) Documented By: (units (unknown) date) Alvin Navarro unknown) PAZ 05/08/22 0747 (unknown) (no (unknown) (unknown) Draft (units (unkno wn) date) unknown) (unknown) (no (unknown) (unknown) Healthy adult (units ( unknown) date) unknown) (unknown) (no (unknown) (unknown) Intake Note: (units (u nknown) date) unknown) (unknown) (no (unknown) (unknown) Intake performed (units (unknown) date) by: Mango Hogan unknown) (unknown) (no (unknown) (unknown) Intake (units (unkno wn) date) unknown) (unknown) (no (unknown) (unknown) Intake- Clincial (units (unknown) date) Staff unknown) (unknown) (no (unknown) (unknown) Loc: [facility] (units (unkno wn) date) unknown) (unknown) (no (unknown) (unknown) Medical History (units (unknown) date) (Reviewed unknown) 05/06/22 @ 12:50 by Catherine Corona PA-C) (unknown) (no (unknown) (unknown) No Known Drug (units ( unknown) date) Allergies Allergy unknown) (Verified 05/06/22 12:21) (unknown) (no (unknown) (unknown) PFSH (units (unkno wn) date) unknown) (unknown) (no (unknown) (unknown) Patient: (units (unkno wn) date) Ivet Tripp MR#: unknown) [id number] (unknown) (no (unknown) (unknown) Reason For Visit (units (unknown) date) unknown) (unknown) (no (unknown) (unknown) Signed By: (units (unk nown) date) unknown) (unknown) (no (unknown) (unknown) Smoking Status: (units (unknown) date) Never smoker unknown) (unknown) (no (unknown) (unknown) Social History (units (unknown) date) unknown) (unknown) (no (unknown) (unknown) This note may (units ( unknown) date) have been all or unknown) partially generated using voice recognition (unknown) (no (unknown) (unknown) Tobacco + (units (unkn own) date) Substance Use unknown) (unknown) (no (unknown) (unknown) Tobacco Status (units (unknown) date) unknown) (unknown) (no (unknown) (unknown) Visit Reasons: (units (unknown) date) congestion eye unknown) itchy, puss and red, RAMIRES (unknown) (no (unknown) (unknown) Walk In Clinic (units (unknown) date) Visit unknown) (unknown) (no (unknown) (unknown) have occurred. (units (unknown) date) If there are any unknown) questions, please contact the Medical Records (unknown) (no (unknown) (unknown) lives (units (unkno wn) date) independently: unknown) Yes (unknown) (no (unknown) (unknown) may occur. (units (unk nown) date) Occasional unknown) wrong-word or 'sound-alike' substitutions may have (unknown) (no (unknown) (unknown) no fever (units (unkno wn) date) unknown) (unknown) (no (unknown) (unknown) occurred due to (units (unknown) date) the inherent unknown) limitations of voice recognition software. Please (unknown) (no (unknown) (unknown) pt has been (units (un known) date) dealing with unknown) symptoms since thursday (unknown) (no (unknown) (unknown) pt has been (units (un known) date) having a unknown) worsening cough at night (unknown) (no (unknown) (unknown) pt has been (units (un known) date) having fatigue unknown) and bodyaches (unknown) (no (unknown) (unknown) pt is here for (units (unknown) date) ongoing unknown) congestion, crusty eyes, itching and redness (unknown) (no (unknown) (unknown) read the note (units ( unknown) date) carefully and unknown) recognize, using context, where these substitutions (unknown) (no (unknown) (unknown) software. (units (unkn own) date) Although every unknown) effort is made to edit content, automatic clipper errors Result panel 10 (unknown) (no (unknown) (unknown) (no value) (units (unk nown) date) unknown) (unknown) (no (unknown) (unknown) 05/08/22 (units (unkno wn) date) unknown) (unknown) (no (unknown) (unknown) 07:54 (units (unkno wn) date) unknown) (unknown) (no (unknown) (unknown) 2080 (units (unkno wn) date) unknown) (unknown) (no (unknown) (unknown) 31-year-old (units (unk nown) date) female, never unknown) smoker, presents to the walk-in clinic with complaints (unknown) (no (unknown) (unknown) Age/Sex: 31 / F (units (unknown) date) Date of Service: unknown) (unknown) (no (unknown) (unknown) Allergies (units (unkn own) date) unknown) (unknown) (no (unknown) (unknown) [facility] (units (unknown) date) Medicine unknown) (unknown) (no (unknown) (unknown) [place], [place] (units ( unknown) date) [id number] unknown) (unknown) (no (unknown) (unknown) Assessment + (units (u nknown) date) Plan unknown) (unknown) (no (unknown) (unknown) Attending Dr: (units ( unknown) date) Alvin Navarro unknown) 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 (unknown) (no (unknown) (unknown) Draft (units (unkno wn) date) unknown) (unknown) (no (unknown) (unknown) HPI (units (unkno wn) date) unknown) (unknown) (no (unknown) (unknown) Healthy adult (units ( unknown) date) unknown) (unknown) (no (unknown) (unknown) Height 175.26 cm (units (unknown) date) unknown) (unknown) (no (unknown) (unknown) Intake Note: (units (u nknown) date) unknown) (unknown) (no (unknown) (unknown) Intake performed (units (unknown) date) by: Mango Hogan unknown) (unknown) (no (unknown) (unknown) Intake (units (unkno wn) date) unknown) (unknown) (no (unknown) (unknown) Intake- Clincial (units (unknown) date) Staff unknown) (unknown) (no (unknown) (unknown) Loc: [facility] (units (unkno wn) date) unknown) (unknown) (no (unknown) (unknown) Medical History (units (unknown) date) (Reviewed unknown) 05/06/22 @ 12:50 by Catherine M Corona, PA-C) (unknown) (no (unknown) (unknown) Medications: (units (u nknown) date) unknown) (unknown) (no (unknown) (unknown) New (units (unkno wn) date) unknown) (unknown) (no (unknown) (unknown) No Known Drug (units ( unknown) date) Allergies Allergy unknown) (Verified 05/06/22 12:21) (unknown) (no (unknown) (unknown) Oxygen Delivery (units (unknown) date) Method room air unknown) (unknown) (no (unknown) (unknown) PFSH (units (unkno wn) date) unknown) (unknown) (no (unknown) (unknown) Patient: (units (unkno wn) date) Ivet Tripp MR#: unknown) [id number] (unknown) (no (unknown) (unknown) Pulse 77 (units (unkno wn) date) unknown) (unknown) (no (unknown) (unknown) Pulse Oximetry (units (unknown) date) (%) 100 unknown) (unknown) (no (unknown) (unknown) Pulse Source (units (u nknown) date) Monitor unknown) (unknown) (no (unknown) (unknown) Reason For Visit (units (unknown) date) unknown) (unknown) (no (unknown) (unknown) Signed By: (units (unk nown) date) unknown) (unknown) (no (unknown) (unknown) Smoking Status: (units (unknown) date) Never smoker unknown) (unknown) (no (unknown) (unknown) Social History (units (unknown) date) unknown) (unknown) (no (unknown) (unknown) Temp 98 F (units (unkn own) date) unknown) (unknown) (no (unknown) (unknown) Temp Source (units (un known) date) Temporal Artery unknown) Scan (unknown) (no (unknown) (unknown) This note may (units ( unknown) date) have been all or unknown) partially generated using voice recognition (unknown) (no (unknown) (unknown) Tobacco + (units (unkn own) date) Substance Use unknown) (unknown) (no (unknown) (unknown) Tobacco Status (units (unknown) date) unknown) (unknown) (no (unknown) (unknown) Visit Reasons: (units (unknown) date) congestion eye unknown) itchy, puss and red, RAMIRES (unknown) (no (unknown) (unknown) Vitals (units (unkno wn) date) unknown) (unknown) (no (unknown) (unknown) Walk In Clinic (units (unknown) date) Visit unknown) (unknown) (no (unknown) (unknown) Weight 127.913 (units (unknown) date) kg unknown) (unknown) (no (unknown) (unknown) erythromycin 0.5 (units (unknown) date) inches ophthalmic unknown) (eye) QID 3.5 grams 0RF CONJUNCTIVITIS (unknown) (no (unknown) (unknown) have occurred. (units (unknown) date) If there are any unknown) questions, please contact the Medical Records (unknown) (no (unknown) (unknown) infection. (units (unk nown) date) Patient denies unknown) having a family doctor. (unknown) (no (unknown) (unknown) lives (units (unkno wn) date) independently: unknown) Yes (unknown) (no (unknown) (unknown) may occur. (units (unk nown) date) Occasional unknown) wrong-word or 'sound-alike' substitutions may have (unknown) (no (unknown) (unknown) no fever (units (unkno wn) date) unknown) (unknown) (no (unknown) (unknown) occurred due to (units (unknown) date) the inherent unknown) limitations of voice recognition software. Please (unknown) (no (unknown) (unknown) of cough and (units (u nknown) date) congestion, left unknown) eye redness and discharge and suspected yeast (unknown) (no (unknown) (unknown) pt has been (units (un known) date) dealing with unknown) symptoms since thursday (unknown) (no (unknown) (unknown) pt has been (units (un known) date) having a unknown) worsening cough at night (unknown) (no (unknown) (unknown) pt has been (units (un known) date) having fatigue unknown) and bodyaches (unknown) (no (unknown) (unknown) pt is here for (units (unknown) date) ongoing unknown) congestion, crusty eyes, itching and redness (unknown) (no (unknown) (unknown) read the note (units ( unknown) date) carefully and unknown) recognize, using context, where these substitutions (unknown) (no (unknown) (unknown) software. (units (unkn own) date) Although every unknown) effort is made to edit content, automatic clipper errors Result panel 11 (unknown) (no (unknown) (unknown) (no value) (units (unk nown) date) unknown) (unknown) (no (unknown) (unknown) (1) Bacterial (units ( unknown) date) conjunctivitis of unknown) left eye: (unknown) (no (unknown) (unknown) 05/08/22 0809 (units ( unknown) date) unknown) (unknown) (no (unknown) (unknown) 05/08/22 (units (unkno wn) date) unknown) (unknown) (no (unknown) (unknown) 07:54 (units (unkno wn) date) unknown) (unknown) (no (unknown) (unknown) 1 (units (unkno wn) date) unknown) (unknown) (no (unknown) (unknown) 31-year-old (units (un known) date) female presents to unknown) the walk-in clinic with multiple complaints to (unknown) (no (unknown) (unknown) 31-year-old (units (unk nown) date) female, never unknown) smoker, presents to the walk-in clinic with complaints (unknown) (no (unknown) (unknown) Age/Sex: 31 / F (units (unknown) date) Date of Service: unknown) (unknown) (no (unknown) (unknown) Allergies (units (unkn own) date) unknown) (unknown) (no (unknown) (unknown) [facility] (units (unknown) date) Medicine unknown) (unknown) (no (unknown) (unknown) [place], [place] (units ( unknown) date) [id number] unknown) (unknown) (no (unknown) (unknown) Assessment + Plan (units (unknown) date) unknown) (unknown) (no (unknown) (unknown) Attending Dr: (units ( unknown) date) Alvin MULLEN unknown) (unknown) (no (unknown) (unknown) BMI 41.6 (units (unkno wn) date) unknown) (unknown) (no (unknown) (unknown) CARDIOVASCULAR: (units (unknown) date) Denies chest pain, unknown) palpitations, edema. (unknown) (no (unknown) (unknown) CARDIOVASCULAR: (units (unknown) date) Regular rate and unknown) rhythm without murmurs, peripheral pulses (unknown) (no (unknown) (unknown) Chief Complaint (units (unknown) date) unknown) (unknown) (no (unknown) (unknown) Chief Complaint: (units (unknown) date) Cough and unknown) congestion (unknown) (no (unknown) (unknown) : 1990 (units (unknown) date) Acct:[id number] unknown) (unknown) (no (unknown) (unknown) Details: (units (unkno wn) date) unknown) (unknown) (no (unknown) (unknown) Documented By: (units (unknown) date) Alvin Navarro unknown) 05/08/22 0747 (unknown) (no (unknown) (unknown) ENT: Nose without (units (unknown) date) bleeding, purulent unknown) drainage. Throat without erythema, (unknown) (no (unknown) (unknown) EYES: Pupils (units (u nknown) date) equal round and unknown) reactive. Extraocular motions intact. Left eye (unknown) (no (unknown) (unknown) Exam Narrative (units (unknown) date) unknown) (unknown) (no (unknown) (unknown) Exam Narrative: (units (unknown) date) unknown) (unknown) (no (unknown) (unknown) Exam (units (unkno wn) date) unknown) (unknown) (no (unknown) (unknown) GASTROINTESTINAL: (units (unknown) date) Denies nausea, unknown) vomiting, abdominal pain, diarrhea, (unknown) (no (unknown) (unknown) GENERAL: Denies (units (unknown) date) chills, fatigue, unknown) fever, sweats. (unknown) (no (unknown) (unknown) GENERAL: This is a (units (unknown) date) well-nourished, unknown) well-developed patient, in no acute distress. (unknown) (no (unknown) (unknown) HEAD: Atraumatic. (units (unknown) date) Normocephalic. unknown) (unknown) (no (unknown) (unknown) HEENT: Denies (units ( unknown) date) sinus pain, ear unknown) pain, sore throat, difficulty swallowing, (unknown) (no (unknown) (unknown) HPI (units (unkno wn) date) unknown) (unknown) (no (unknown) (unknown) Healthy adult (units ( unknown) date) unknown) (unknown) (no (unknown) (unknown) Height 175.26 cm (units (unknown) date) unknown) (unknown) (no (unknown) (unknown) Intake Note: (units (u nknown) date) unknown) (unknown) (no (unknown) (unknown) Intake performed (units (unknown) date) by: Mango Hogan unknown) (unknown) (no (unknown) (unknown) Intake (units (unkno wn) date) unknown) (unknown) (no (unknown) (unknown) Intake- Clincial (units (unknown) date) Staff unknown) (unknown) (no (unknown) (unknown) Loc: [facility] (units (unkno wn) date) unknown) (unknown) (no (unknown) (unknown) MSK: Denies (units (un known) date) weakness, joint unknown) pain, or bony pain. (unknown) (no (unknown) (unknown) MSK: Moves all (units (unknown) date) extremities. unknown) Normal range of motion, no clubbing or edema. (unknown) (no (unknown) (unknown) Medical History (units (unknown) date) (Reviewed 05/08/22 unknown) @ 08:06 by PAZ Garcia) (unknown) (no (unknown) (unknown) Medications: (units (u nknown) date) unknown) (unknown) (no (unknown) (unknown) NECK: Trachea (units ( unknown) date) midline. No JVD or unknown) lymphadenopathy. Nontender. (unknown) (no (unknown) (unknown) NEURO: A+O x 3. (units (unknown) date) unknown) (unknown) (no (unknown) (unknown) NEUROLOGIC: (units (un known) date) Denies weakness, unknown) dizziness, headache, numbness, confusion. (unknown) (no (unknown) (unknown) Narrative: See (units (unknown) date) HPI. unknown) (unknown) (no (unknown) (unknown) Neurovascularly (units (unknown) date) intact. unknown) (unknown) (no (unknown) (unknown) New (units (unkno wn) date) unknown) (unknown) (no (unknown) (unknown) No Known Drug (units ( unknown) date) Allergies Allergy unknown) (Verified 05/06/22 12:21) (unknown) (no (unknown) (unknown) Orders (units (unkno wn) date) unknown) (unknown) (no (unknown) (unknown) Orders: (units (unkno wn) date) unknown) (unknown) (no (unknown) (unknown) Oxygen Delivery (units (unknown) date) Method room air unknown) (unknown) (no (unknown) (unknown) PFSH (units (unkno wn) date) unknown) (unknown) (no (unknown) (unknown) Patient (units (unkno wn) date) verbalized unknown) understanding. (unknown) (no (unknown) (unknown) Patient: (units (unkno wn) date) Ivet Tripp MR#: unknown) [id number] (unknown) (no (unknown) (unknown) Plan (units (unkno wn) date) unknown) (unknown) (no (unknown) (unknown) Pulse 77 (units (unkno wn) date) unknown) (unknown) (no (unknown) (unknown) Pulse Oximetry (units (unknown) date) (%) 100 unknown) (unknown) (no (unknown) (unknown) Pulse Source (units (u nknown) date) Monitor unknown) (unknown) (no (unknown) (unknown) RESPIRATORY: (units (u nknown) date) Breath sounds unknown) equal and clear bilaterally. No wheezes, rales, or (unknown) (no (unknown) (unknown) RESPIRATORY: (units (u nknown) date) Denies dyspnea, unknown) wheezing, sputum. Endorses cough and congestion. (unknown) (no (unknown) (unknown) ROS Narrative (units ( unknown) date) unknown) (unknown) (no (unknown) (unknown) ROS Narrative: (units (unknown) date) unknown) (unknown) (no (unknown) (unknown) ROS (units (unkno wn) date) unknown) (unknown) (no (unknown) (unknown) Reason For Visit (units (unknown) date) unknown) (unknown) (no (unknown) (unknown) SKIN: Denies (units (u nknown) date) rash, skin unknown) lesions, or pruritis. (unknown) (no (unknown) (unknown) SKIN: Warm, dry, (units (unknown) date) no rashes or unknown) lesions noted. (unknown) (no (unknown) (unknown) Signed By: (units (unk nown) date) <Electronically unknown) signed by Alvin Navarro> (unknown) (no (unknown) (unknown) Signed (units (unkno wn) date) unknown) (unknown) (no (unknown) (unknown) Smoking Status: (units (unknown) date) Never smoker unknown) (unknown) (no (unknown) (unknown) Social History (units (unknown) date) unknown) (unknown) (no (unknown) (unknown) Temp 98 F (units (unkn own) date) unknown) (unknown) (no (unknown) (unknown) Temp Source (units (un known) date) Temporal Artery unknown) Scan (unknown) (no (unknown) (unknown) This note may (units ( unknown) date) have been all or unknown) partially generated using voice recognition (unknown) (no (unknown) (unknown) Tobacco + (units (unkn own) date) Substance Use unknown) (unknown) (no (unknown) (unknown) Tobacco Status (units (unknown) date) unknown) (unknown) (no (unknown) (unknown) Visit Reasons: (units (unknown) date) congestion eye unknown) itchy, puss and red, RAMIRES (unknown) (no (unknown) (unknown) Vitals (units (unkno wn) date) unknown) (unknown) (no (unknown) (unknown) Walk In Clinic (units (unknown) date) Visit unknown) (unknown) (no (unknown) (unknown) Weight 127.913 kg (units (unknown) date) unknown) (unknown) (no (unknown) (unknown) Wet Prep Tric BV (units (unknown) date) Kirstin Today unknown) N89.8 - Other specified noninflammatory disorders (unknown) (no (unknown) (unknown) and her viral (units ( unknown) date) panel was unknown) negative. Patient denies having a family doctor. (unknown) (no (unknown) (unknown) and treat if (units (u nknown) date) indicated. unknown) Strongly recommended patient obtain a family doctor. (unknown) (no (unknown) (unknown) at . (units (unknown) date) unknown) (unknown) (no (unknown) (unknown) conjunctivitis. (units (unknown) date) Will treat with unknown) erythromycin ointment. I suspect patient's (unknown) (no (unknown) (unknown) constipation. (units ( unknown) date) Endorses white unknown) vaginal discharge. (unknown) (no (unknown) (unknown) cough and (units (unkn own) date) congestion is unknown) related to sinus drainage. Recommended supportive care (unknown) (no (unknown) (unknown) dizziness. (units (unk nown) date) Endorses left eye unknown) redness and discharge. (unknown) (no (unknown) (unknown) due to the (units (unk nown) date) inherent unknown) limitations of voice recognition software. Please read the (unknown) (no (unknown) (unknown) erythromycin 0.5 (units (unknown) date) inches ophthalmic unknown) (eye) QID 3.5 grams 0RF CONJUNCTIVITIS (unknown) (no (unknown) (unknown) include cough and (units (unknown) date) congestion, left unknown) eye redness and discharge and suspected yeast (unknown) (no (unknown) (unknown) infection. (units (unk nown) date) Assessment was unknown) encouraging but consistent with left bacterial (unknown) (no (unknown) (unknown) infection. (units (unk nown) date) Patient states unknown) that she was seen in the walk-in clinic 2 days ago (unknown) (no (unknown) (unknown) intact, cap (units (un known) date) refill <2 sec. unknown) (unknown) (no (unknown) (unknown) lives (units (unkno wn) date) independently: Yes unknown) (unknown) (no (unknown) (unknown) no fever (units (unkno wn) date) unknown) (unknown) (no (unknown) (unknown) note carefully (units (unknown) date) and recognize, unknown) using context, where these substitutions have (unknown) (no (unknown) (unknown) occurred. If (units (u nknown) date) there are any unknown) questions, please contact the Medical Records Dept (unknown) (no (unknown) (unknown) of cough and (units (u nknown) date) congestion, left unknown) eye redness and discharge and suspected yeast (unknown) (no (unknown) (unknown) of vagina (units (unkn own) date) unknown) (unknown) (no (unknown) (unknown) patent. TMs and (units (unknown) date) canals clear, with unknown) bilateral effusion. No sinus tenderness. (unknown) (no (unknown) (unknown) pt has been (units (un known) date) dealing with unknown) symptoms since thursday (unknown) (no (unknown) (unknown) pt has been (units (un known) date) having a worsening unknown) cough at night (unknown) (no (unknown) (unknown) pt has been (units (un known) date) having fatigue and unknown) bodyaches (unknown) (no (unknown) (unknown) pt is here for (units (unknown) date) ongoing unknown) congestion, crusty eyes, itching and redness (unknown) (no (unknown) (unknown) rhonchi. No (units (un known) date) cough. No unknown) increased respiratory effort. No accessory muscle use. (unknown) (no (unknown) (unknown) scleral injection (units (unknown) date) with green unknown) discharge. (unknown) (no (unknown) (unknown) software. Although (units (unknown) date) every effort is unknown) made to edit content, automatic clipper errors ma (unknown) (no (unknown) (unknown) that included (units ( unknown) date) rest, increased unknown) oral hydration, gargling with warm salt water in (unknown) (no (unknown) (unknown) the morning, (units (u nknown) date) daily Claritin or unknown) Zyrtec and Flonase nasal spray. Will obtain a (unknown) (no (unknown) (unknown) tonsillar (units (unkn own) date) hypertrophy, unknown) positive postnasal exudate. Uvula midline. Airway (unknown) (no (unknown) (unknown) wet prep to test (units (unknown) date) for yeast, BV and unknown) Trichomonas and contact patient with results, (unknown) (no (unknown) (unknown) y occur. (units (unkno wn) date) Occasional unknown) wrong-word or 'sound-alike' substitutions may have occurred Result panel 12 (unknown) (no date) (unknown) (unknown) (no value) (units (un known) unknown) (unknown) (no date) (unknown) (unknown) No WBC seen (units (u nknown) unknown) (unknown) (no date) (unknown) (unknown) No WBC seen (units (u nknown) unknown) (unknown) (no date) (unknown) (unknown) None seen (units (unk nown) unknown) Social History date description facility 2022-05-06 00:00 Never smoked tobacco (finding) [facility] 2022-05-08 00:00 Never smoked tobacco (finding) [facility] Vital Signs date measurement value units 2022-05-06 00:00 BMI 41.6 kg/m2 2022-05-06 00:00 BP_diastolic 72 mmHg 2022-05-06 00:00 BP_systolic 116 mmHg 2022-05-06 00:00 heart_rate 115 /min 2022-05-06 00:00 heart_rate 120 /min 2022-05-06 00:00 height_metric 175.26 cm 2022-05-06 00:00 height_standard 69 in 2022-05-06 00:00 o2_saturation 97 % 2022-05-06 00:00 respiration_rate 16 /min 2022-05-06 00:00 temperature_metric 36.94 C 2022-05-06 00:00 temperature_standard 98.5 F 2022-05-06 00:00 weight_metric 128.05 kg 2022-05-06 00:00 weight_standard 282.3 lb 2022-05-08 00:00 BMI 41.6 kg/m2 2022-05-08 00:00 heart_rate 77 /min 2022-05-08 00:00 height_metric 175.26 cm 2022-05-08 00:00 height_standard 69 in 2022-05-08 00:00 o2_saturation 100 % 2022-05-08 00:00 temperature_metric 36.67 C 2022-05-08 00:00 temperature_standard 98 F 2022-05-08 00:00 weight_metric 127.91 kg 2022-05-08 00:00 weight_standard 281.99 lb
[2022-05-08] MEDS ORDERED: cefTRIAXone 500 MG VIAL IM STA (14:33)
[2022-05-08] MEDS ORDERED: LIDOCAINE 1% 2 ML VIAL MC ONE (14:33)
[2022-05-08] MEDS ORDERED: FLUCONAZOLE 100 MG TABLET PO STA (14:34)
[2022-05-08 15:22] VITALS: BP 140/88
[2022-05-08 18:01] LABS: CHLAMYDIA TRACHOMATIS DNA NEGATIVE (NEGATIVE); NEISSERIA GONORRHOEAE DNA NEGATIVE (NEGATIVE); TRICHOMONAS VAGINALIS DNA NEGATIVE (NEGATIVE)
== END 2022-05-08 15:20 | disposition home or self-care (01) ==
LOC: ED 13:19
DX: N89.8 Other specified noninflammatory disorders of vagina (principal)
CPT/HCPCS: 87210; 87491; 87591; 87661; 96372; 99283; 99284; A9270

== ENCOUNTER 2022-06-04 18:14 | Emergency (ER) | payer MEDICAID ==
[2022-06-04 18:49] LABS: RAPID STREP SCREEN Negative (Negative)
--- OUTSIDE RECORDS SUMMARY | 2022-06-04 18:55 | EXTERNAL MEDICAL SUMMARY RPT | Continuity of Care Document ---
:1990 Author Organization [facility] Address [address] [place] [address] Phone Care Team Providers Name Role Phone Catherine Corona Unavailable Unavailable Allergies No information. Encounters No information. Functional Status No information. Immunizations No information. Medications date description facility 2022-05-08 00:00 [facility] Problems date description facility 2022-05-08 08:07 Other specified noninflammatory disorde rs of [facility] vagina 2022-05-09 00:22 Other specified noninflammatory disorde rs of [facility] vagina Procedures No information. Results/Labs test date author facility value unit interpret ation Result panel 1 (unknown) (no date) (unknown) [facility] (no value[facility] ([facility] ([facility]own[facility] Hospital unknown) Result panel 2 (unknown) (no date) (unknown) [facility] (no value) (units ([facility]own[facility] Hospital unknown) Result panel 3 (unknown) (no date) (unknown) [facility] (no value) (units ([facility] nown[facility] Hospital unknown) [...] own) date) unknown) (unknown) (no (unknown) (unknown) [facility] (units (unknown) date) Medicine unknown) (unknown) (no (unknown) (unknown) [facility] (units ( unknown) date) [id number] unknown) (unknown) (no (unknown) (unknown) Attending Dr: (units ( unknown) date) Catherine Perry unknown) Cj Olvera (unknown) (no (unknown) (unknown) : 1990 (units (unknown) date) Acct:[id number] unknown) (unknown) (no (unknown) (unknown) Dept at [...] (unkno wn) date) [facility] MR#: unknown) [id number] (unknown) (no (unknown) (unknown) Pt presents with [...] (unknown) (unknown) Visit Reasons: (units (unknown) date) 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 (unknown) (no (unknown) [...] unknown) effort is made to edit content, brokerage coordinator errors Result panel 5 (unknown) (no (unknown) [...] own) date) unknown) (unknown) (no (unknown) (unknown) [facility] (units (unknown) date) Medicine unknown) (unknown) (no (unknown) (unknown) [place], [place] (units ( unknown) date) [id number] unknown) (unknown) (no (unknown) (unknown) Assessment + (units (u nknown) date) Plan unknown) (unknown) (no (unknown) (unknown) Attending Dr: (units ( unknown) date) Catherine Perry unknown) Cj Olvera (unknown) (no (unknown) (unknown) BMI 41.6 (units [...] (unknown) (unknown) : 1990 (units (unknown) date) Acct:[id number] unknown) (unknown) (no (unknown) (unknown) Dept at [...] (unkno wn) date) [facility] MR#: unknown) [id number] (unknown) (no (unknown) (unknown) Position Sitting (units [...] (unknown) (unknown) Visit Reasons: (units (unknown) date) 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 (unknown) (no (unknown) [...] unknown) effort is made to edit content, brokerage coordinator errors Result panel 6 (unknown) (no (unknown) [...] own) date) unknown) (unknown) (no (unknown) (unknown) [facility] (units (unknown) date) Medicine unknown) (unknown) (no (unknown) (unknown) [place], [place] (units ( unknown) date) [id number] unknown) (unknown) (no (unknown) (unknown) Assessment + [...] (unknown) (unknown) : 1990 (units (unknown) date) Acct:[id number] unknown) (unknown) (no (unknown) (unknown) Dept at [...] (unkno wn) date) [facility] MR#: unknown) [id number] (unknown) (no (unknown) (unknown) Per HPI (units [...] upper (unknown) (no (unknown) (unknown) 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 throat unknown) congestion [...] unknown) effort is made to edit content, brokerage coordinator errors (unknown) (no (unknown) (unknown) tachycardic at [...] own) date) unknown) (unknown) (no (unknown) (unknown) [facility] (units (unknown) date) Medicine unknown) (unknown) (no (unknown) (unknown) [place] (units ( unknown) date) [id number] unknown) (unknown) (no (unknown) (unknown) Attending Dr: (units ( unknown) date) Alvin Navarro unknown) DOPE WORKER (unknown) (no (unknown) (unknown) : 1990 (units (unknown) date) Acct:[id number] unknown) (unknown) (no (unknown) (unknown) Dept at [...] (unkno wn) date) [facility] MR#: unknown) [id number] (unknown) (no (unknown) (unknown) Reason For Visit [...] unknown) effort is made to edit content, brokerage coordinator errors Result panel 9 (unknown) (no (unknown) [...] own) date) unknown) (unknown) (no (unknown) (unknown) [facility] (units (unknown) date) Medicine unknown) (unknown) (no (unknown) (unknown) [place], [place] (units ( unknown) date) [id number] unknown) (unknown) (no (unknown) (unknown) Attending Dr: (units ( unknown) date) Alvin Navarro unknown) PAZ (unknown) (no (unknown) (unknown) : 1990 (units (unknown) date) Acct:[id number] unknown) (unknown) (no (unknown) (unknown) Dept at [...] (unkno wn) date) [facility] MR#: unknown) [id number] (unknown) (no (unknown) (unknown) Reason For Visit [...] unknown) effort is made to edit content, brokerage coordinator errors Result panel 10 (unknown) (no (unknown) [...] own) date) unknown) (unknown) (no (unknown) (unknown) [facility] (units (unknown) date) Medicine unknown) (unknown) (no (unknown) (unknown) [place], [place] (units ( unknown) date) [id number] unknown) (unknown) (no (unknown) (unknown) Assessment + (units (u nknown) date) Plan unknown) (unknown) (no (unknown) (unknown) Attending Dr: (units ( unknown) date) Alvin Navarro unknown) DOPE WORKER (unknown) (no (unknown) (unknown) BMI 41.6 (units (unkno wn) date) unknown) (unknown) (no (unknown) (unknown) Chief Complaint (units (unknown) date) unknown) (unknown) (no (unknown) (unknown) Chief Complaint: (units (unknown) date) Cough and unknown) congestion (unknown) (no (unknown) (unknown) : 1990 (units (unknown) date) Acct:[id number] unknown) (unknown) (no (unknown) (unknown) Dept at [...] Catherine Corona PA-C) (unknown) (no (unknown) (unknown) Medications: (units [...] (unkno wn) date) [facility] MR#: unknown) [id number] (unknown) (no (unknown) (unknown) Pulse 77 (units [...] unknown) effort is made to edit content, brokerage coordinator errors Result panel 11 (unknown) (no (unknown) [...] own) date) unknown) (unknown) (no (unknown) (unknown) [facility] (units (unknown) date) Medicine unknown) (unknown) (no (unknown) (unknown) [place], [place] (units ( unknown) date) [id number] unknown) (unknown) (no (unknown) (unknown) Assessment + [...] (unknown) (unknown) : 1990 (units (unknown) date) Acct:[id number] unknown) (unknown) (no (unknown) (unknown) Details: (units [...] (unkno wn) date) [facility] Tripp MR#: unknown) [id number] (unknown) (no (unknown) (unknown) Plan (units (unkno [...] effort is unknown) made to edit content, brokerage coordinator errors ma (unknown) (no (unknown) (unknown) that [...] facility 2022-05-06 00:00 Never smoked tobacco (finding) [facility] 2022-05-08 00:00 Never smoked tobacco (finding) [facility] Vital Signs date measurement value units [...]
--- NOTE | 2022-06-04 19:39 | XRAY Report ---
PROCEDURE: Chest 1 View X-Ray INDICATIONS: cough x 2 weeks TECHNIQUE: One view of the chest was acquired. COMPARISON: None. FINDINGS: Surgical changes and devices: None. Lungs and pleura: No pleural effusions or pneumothorax. Lungs are clear. Mediastinum: Mediastinal contours appear normal. Heart size is normal. Bones and chest wall: No suspicious bony lesions. Overlying soft tissues appear unremarkable. IMPRESSION: No acute cardiopulmonary abnormality Reviewed by: Seth Collier on 06/04/2022 7:38 PM PDT Approved by: Seth Collier on 06/04/2022 7:38 PM PDT Station ID: [id number]
[2022-06-04 19:56] LABS: B. PARAPERTUSSIS- RESP PCR PAN NOT DETECTED; B. PERTUSSIS- RESP PCR PANEL NOT DETECTED; C. PNEUMONIAE- RESP PCR PANEL NOT DETECTED; CORONAVIRUS 229E-RESP PCR NOT DETECTED; CORONAVIRUS HKU1-RESP PCR NOT DETECTED; CORONAVIRUS NL63-RESP PCR NOT DETECTED; CORONAVIRUS OC43-RESP PCR NOT DETECTED; HUMAN METAPNEUMOVIRUS NOT DETECTED; INFLUENZA A- RESP PCR PANEL NOT DETECTED; INFLUENZA B - RESP PCR PANEL NOT DETECTED; M. PNEUMONIAE- RESP PCR PANEL NOT DETECTED; PARAINFLUENZA VIRUS 1 NOT DETECTED; PARAINFLUENZA VIRUS 2 NOT DETECTED; PARAINFLUENZA VIRUS 3 NOT DETECTED; PARAINFLUENZA VIRUS 4 NOT DETECTED; RHINOVIRUS/ENTEROVIRUS NOT DETECTED; RSV- RESP PCR PANEL NOT DETECTED; SARS-CoV-2 -RESP PCR PANEL NOT DETECTED
[2022-06-04] MEDS ORDERED: CHERRY SYRUP 10 ML UDC PO ONE (20:13)
[2022-06-04] MEDS ORDERED: DEXAMETHASONE 10 MG/ML VIAL PO STA (20:13)
--- NOTE | 2022-06-04 20:16 | ED Physician Documentation ---
PD HPI HEENT - Stated complaint Stated Complaint: COUGH,SORE THROAT - Chief complaint Chief Complaint: Heent - History obtained from History obtained from: Patient - Additional information Additional information: Patient is a 31-year-old female presenting for evaluation of productive cough, sore throat and congestion for the past 2 weeks.She works at the [employer] so is around children all day.She denies known fevers and denies chills. Her cough is sometimes productive of clear sputum but at times has also been green. Denies hemoptysis.She denies feeling short of breath or having chest pain. She does report having a sore throat. She has tried chug-kwk-[id number] medications including acetaminophen and Mucinex without significant improvement in her symptoms.Patient was concerned given the duration of her symptoms. Was given antibiotics last month for STD prophylaxis including a week of doxycycline. She states she felt better for a week but then started feeling sick again a week later. Review of Systems Constitutional: denies: Fever Nose: reports: Congestion Throat: reports: Sore throat Cardiac: denies: Chest pain / pressure Respiratory: reports: Cough. 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 - Present Medications Home Medications: Ambulatory Orders Medication Instructions Recorded Confirmed Doxycycline Hyclate 100 mg PO BID #14 cap 05/08/22 Fluconazole 150 mg PO ONCE #1 tablet 05/08/22 metroNIDAZOLE [Flagyl] 500 mg PO BID 7 Days #14 tablet 05/08/22 - Allergies Allergies/Adverse Reactions: Allergies Allergy/AdvReac Type Severity Reaction Status Date / Time No Known Drug Allergies Allergy Verified 06/04/22 18:33 - Social History Does the pt smoke?: No Smoking Status: Never smoker Does the pt drink ETOH?: Yes - POLST Patient has POLST: No PD ED PE NORMAL - General General: Alert and oriented X 3, No acute distress, Well developed/nourished - HEENT HEENT: Atraumatic, Moist mucous membranes, Pharynx benign, Other (No oral sw elling, erythema or exudate) - Neck Neck: Supple, no meningeal sign, Other (No tenderness over maxillary or frontal sinuses) - Cardiac Cardiac: RRR - Respiratory Respiratory: No respiratory distress, Clear bilaterally - Derm Derm: Warm and dry - Neuro Neuro: Normal speech Results - Vitals Vitals: Vital Signs - 24 hr 06/04/22 06/04/22 18:26 20:23 Temperature 36.5 C 36.7 C Heart Rate 96 86 Respiratory 17 18 Rate Blood Pressure 145/100 H 140/72 H O2 Saturation 98 100 Oxygen O2 Source Room air - Labs Labs: Laboratory Tests 06/04/22 06/04/22 18:32 18:42 Nasal Adenovirus (PCR) NOT DETECTED Nasal B. parapertussis DNA (PCR) NOT DETECTED Nasal Coronavir 229E PCR NOT DETECTED Nasal Coronavir HKU1 PCR NOT DETECTED Nasal Coronavir NL63 PCR NOT DETECTED Nasal Coronavir OC43 PCR NOT DETECTED Nasal Enterovir/Rhinovir PCR NOT DETECTED Nasal Influenza B PCR NOT DETECTED Nasal Influenza A PCR NOT DETECTED Nasal Parainfluen 1 PCR NOT DETECTED Nasal Parainfluen 2 PCR NOT DETECTED Nasal Parainfluen 3 PCR NOT DETECTED Nasal Parainfluen 4 PCR NOT DETECTED Nasal RSV (PCR) NOT DETECTED Nasal B.pertussis DNA PCR NOT DETECTED Nasal C.pneumoniae (PCR) NOT DETECTED Jeff Human Metapneumo PCR NOT DETECTED Nasal M.pneumoniae (PCR) NOT DETECTED Nasal SARS-CoV-2 (PCR) NOT DETECTED Group A Strep Rapid Negative PD Medical Decision Making - ED course Complexity details: reviewed results, re-evaluated patient, d/w patient ED course: Patient presenting for evaluation of URI symptoms for 2 weeks. She does work at the [employer] and is around children all day. Her vital signs are stable. Her lung exam is normal. She does not have sinus tenderness noted on exam. Her pharynx is unremarkable with no signs of oral swelling or abscess. Her strep test is negative. Her chest x-ray is clear. Discussed continued supportive care. We did give her a dose of Decadron. Patient counseled on concerning symptoms to return for. Departure - Departure Disposition: 01 Home, Self Care Clinical Impression: Viral pharyngitis, URI with cough and congestion Condition: Stable Instructions: ED Pharyngitis Viral, ED URI Viral Comments: Your strep test is negative. Your chest x-ray is negative and does not show signs of pneumonia. Your viral swab is negative for COVID, influenza, RSV and a few other common cold viruses that we test for. However I still feel that your symptoms are likely related to a viral infection I do not see a clear indic ation for antibiotics at this time. I will give you a dose of a steroid today to help with the throat discomfort. This is a long-acting steroid. You will not need any further doses. Please continue to stay hydrated. I would recommend Continued ibuprofen or acetaminophen as needed for pain, saline spray in the nose to loosen any mucus. If you develop any worsening symptoms please consider return to the ER. Discharge Date/Time: 06/04/22 20:24
[2022-06-04 20:24] VITALS: BP 140/72
== END 2022-06-04 20:24 | disposition home or self-care (01) ==
LOC: ED 18:14
DX: J06.9 Acute upper respiratory infection, unspecified (principal); J02.9 Acute pharyngitis, unspecified; Z20.822 Contact with and (suspected) exposure to COVID-19
CPT/HCPCS: 71045; 87070; 87430; 87633; 99283; 99284; A9270

== ENCOUNTER 2022-06-23 09:50 | Emergency (ER) | payer MEDICAID ==
--- OUTSIDE RECORDS SUMMARY | 2022-06-23 10:16 | EXTERNAL MEDICAL SUMMARY RPT | Continuity of Care Document ---
:1990 Author Organization [facility] Address [address] [place] [address] Phone Care Team Providers Name Role Phone Catherine Corona Unavailable Unavailable Allergies No information. Encounters No information. Functional Status No information. Immunizations No information. Medications date description facility 2022-05-08 00:00 [facility] Problems date description facility 2022-05-08 08:07 Other specified noninflammatory disorde rs of [facility] 2022-05-09 00:22 Other specified noninflammatory disorde rs of [facility] vagina Procedures No information. Results/Labs test date author facility value unit interpret ation Result panel 1 (unknown) (no date) (unknown) [facility] (no value) (units ([facility]own[facility] Hospital unknown) Result panel 2 (unknown) (no date) (unknown) [facility] (no value[facility] unknown) Result panel 3 (unknown) (no date) (unknown) [facility] (no value[facility] (units ([facility]own[facility] Hospital unknown) [...] own) date) unknown) (unknown) (no (unknown) (unknown) [facility] (units (unknown) date) Medicine unknown) (unknown) (no (unknown) (unknown) [facility] (units ( unknown) date) [id number] unknown) (unknown) (no (unknown) (unknown) Attending Dr: (units ( unknown) date) Catherine Perry unknown) Cj Olvera (unknown) (no (unknown) (unknown) : 1990 (units (unknown) date) Acct:[id number] unknown) (unknown) (no (unknown) (unknown) Dept at [...] (unkno wn) date) [facility] MR#: unknown) [id number] (unknown) (no (unknown) (unknown) Pt presents with [...] (unknown) (unknown) Visit Reasons: (units (unknown) 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) 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) congestion (unknown) (no (unknown) [...] unknown) effort is made to edit content, file drawer finisher errors Result panel 5 (unknown) (no (unknown) [...] own) date) unknown) (unknown) (no (unknown) (unknown) [facility] (units (unknown) date) Medicine unknown) (unknown) (no (unknown) (unknown) [place], [place] (units ( unknown) date) [id number] unknown) (unknown) (no (unknown) (unknown) Assessment + [...] (unknown) (unknown) : 1990 (units (unknown) date) Acct:[id number] unknown) (unknown) (no (unknown) (unknown) Dept at [...] (unkno wn) date) [facility] MR#: unknown) [id number] (unknown) (no (unknown) (unknown) Position Sitting (units [...] (unknown) (unknown) Visit Reasons: (units (unknown) date) 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) congestion (unknown) (no (unknown) [...] unknown) effort is made to edit content, file drawer finisher errors Result panel 6 (unknown) (no (unknown) [...] own) date) unknown) (unknown) (no (unknown) (unknown) [facility] (units (unknown) date) Medicine unknown) (unknown) (no (unknown) (unknown) [place], [place] (units ( unknown) date) [id number] unknown) (unknown) (no (unknown) (unknown) Assessment + [...] (unknown) (unknown) : 1990 (units (unknown) date) Acct:[id number] unknown) (unknown) (no (unknown) (unknown) Dept at [...] (unkno wn) date) [facility] MR#: unknown) [id number] (unknown) (no (unknown) (unknown) Per HPI (units [...] upper (unknown) (no (unknown) (unknown) 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) sore throat unknown) congestion [...] unknown) effort is made to edit content, file drawer finisher errors (unknown) (no (unknown) (unknown) tachycardic at [...] own) date) unknown) (unknown) (no (unknown) (unknown) [facility] (units (unknown) date) Medicine unknown) (unknown) (no (unknown) (unknown) [place], [place] (units ( unknown) date) [id number] unknown) (unknown) (no (unknown) (unknown) Attending Dr: (units ( unknown) date) Alvin Navarro unknown) TEACHERS' AIDE (unknown) (no (unknown) (unknown) : 1990 (units (unknown) date) Acct:[id number] unknown) (unknown) (no (unknown) (unknown) Dept at [...] (unkno wn) date) [facility] MR#: unknown) [id number] (unknown) (no (unknown) (unknown) Reason For Visit [...] unknown) effort is made to edit content, file drawer finisher errors Result panel 9 (unknown) (no (unknown) [...] own) date) unknown) (unknown) (no (unknown) (unknown) [facility] (units (unknown) date) Medicine unknown) (unknown) (no (unknown) (unknown) [place], [place] (units ( unknown) date) [id number] unknown) (unknown) (no (unknown) (unknown) Attending Dr: (units ( unknown) date) Alvin Navarro unknown) PAZ (unknown) (no (unknown) (unknown) : 1990 (units (unknown) date) Acct:[id number] unknown) (unknown) (no (unknown) (unknown) Dept at [...] (unkno wn) date) [facility] MR#: unknown) [id number] (unknown) (no (unknown) (unknown) Reason For Visit [...] unknown) effort is made to edit content, file drawer finisher errors Result panel 10 (unknown) (no (unknown) [...] own) date) unknown) (unknown) (no (unknown) (unknown) [facility] (units (unknown) date) Medicine unknown) (unknown) (no (unknown) (unknown) [place], [place] (units ( unknown) date) [id number] unknown) (unknown) (no (unknown) (unknown) Assessment + (units (u nknown) date) Plan unknown) (unknown) (no (unknown) (unknown) Attending Dr: (units ( unknown) date) Alvin Navarro unknown) TEACHERS' AIDE (unknown) (no (unknown) (unknown) BMI 41.6 (units (unkno wn) date) unknown) (unknown) (no (unknown) (unknown) Chief Complaint (units (unknown) date) unknown) (unknown) (no (unknown) (unknown) Chief Complaint: (units (unknown) date) Cough and unknown) congestion (unknown) (no (unknown) (unknown) : 1990 (units (unknown) date) Acct:[id number] unknown) (unknown) (no (unknown) (unknown) Dept at [...] (unkno wn) date) [facility] MR#: unknown) [id number] (unknown) (no (unknown) (unknown) Pulse 77 (units [...] unknown) effort is made to edit content, file drawer finisher errors Result panel 11 (unknown) (no (unknown) [...] own) date) unknown) (unknown) (no (unknown) (unknown) [facility] (units (unknown) date) Medicine unknown) (unknown) (no (unknown) (unknown) [place], [place] (units ( unknown) date) [id number] unknown) (unknown) (no (unknown) (unknown) Assessment + [...] (unknown) (unknown) : 1990 (units (unknown) date) Acct:[id number] unknown) (unknown) (no (unknown) (unknown) Details: (units [...] (unkno wn) date) [facility] MR#: unknown) [id number] (unknown) (no (unknown) (unknown) Plan (units (unkno [...] effort is unknown) made to edit content, file drawer finisher errors ma (unknown) (no (unknown) (unknown) that [...] facility 2022-05-06 00:00 Never smoked tobacco (finding) [facility] 2022-05-08 00:00 Never smoked tobacco (finding) [facility] Vital Signs date measurement value units 2022-05-06 [...]
--- NOTE | 2022-06-23 10:40 | ED Physician Documentation ---
PD HPI URI - Stated complaint Stated Complaint: SORE THROAT/CHILLS/SWEATS - Chief complaint Chief Complaint: General - History obtained from History obtained from: Patient - History of Present Illness Timing - onset: How many days ago (3-4) Timing duration: Days (3-4) Timing details: Abrupt onset, Still present Associated symptoms: Chills, Sore throat, Swollen nodes, Productive cough. No: Fever, Nasal congestion, NVD Contributing factors: No: Sick contact Similar symptoms before: Diagnosis (feels similar to Chase she had in 2019.) Recently seen: Not recently seen Review of Systems Constitutional: reports: Chills, Myalgias, Fatigue. denies: Fever Nose: denies: Rhinorrhea / runny nose, Congestion Throat: reports: Sore throat, Swollen tonsils Respiratory: reports: Cough. denies: Dyspnea, Wheezing GI: reports: Nausea. denies: Abdominal Pain, Vomiting, Diarrhea : denies: Dysuria Skin: denies: Rash Neurologic: reports: Headache. 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 - Present Medications Home Medications: Ambulatory Orders Medication Instructions Recorded Confirmed Doxycycline Hyclate 100 mg PO BID #14 cap 05/08/22 Fluconazole 150 mg PO ONCE #1 tablet 05/08/22 metroNIDAZOLE [Flagyl] 500 mg PO BID 7 Days #14 tablet 05/08/22 HYDROcod/ACETAM 5/325 [[place] 5/325] 1 ea PO Q6H PRN #10 tablet 06/23/22 Penicillin V Potassium 500 mg PO QID #28 tablet 06/23/22 dexAMETHasone [Decadron] 4 mg PO DAILY #5 tablet 06/23/22 - Allergies Allergies/Adverse Reactions: Allergies Allergy/AdvReac Type Severity Reaction Status Date / Time No Known Drug Allergies Allergy Verified 06/23/22 09:55 - Social History Does the pt smoke?: No Smoking Status: Never smoker Does the pt drink ETOH?: Yes - POLST Patient has POLST: No PD ED PE NORMAL - Vitals Vital signs reviewed: Yes - General General: Alert and oriented X 3, Well developed/nourished - HEENT HEENT: Ears normal, Pharynx benign (Both tonsils are enlarged with exudate. There is no peritonsillar swelling or uvular deviation.) - Neck Neck: Supple, no meningeal sign, Other (bilateral anterior adenopathy tender. ) - Cardiac Cardiac: RRR, No murmur - Respiratory Respiratory: Clear bilaterally - Abdomen Abdomen: Soft, Non tender Results - Vitals Vitals: Vital Signs - 24 hr 06/23/22 09:53 Temperature 36.9 C Heart Rate 106 H Respiratory 20 Rate Blood Pressure 136/80 H O2 Saturation 100 Oxygen O2 Source Room air - Labs Labs: Laboratory Tests 06/23/22 06/23/22 06/23/22 10:58 10:58 11:13 Sodium Potassium Chloride Carbon Dioxide Anion Gap BUN Creatinine Estimated GFR (MDRD) Glucose Calcium Total Bilirubin AST ALT Alkaline Phosphatase Total Protein Albumin Globulin Albumin/Globulin Ratio Lipase Nasal Adenovirus (PCR) NOT DETECTED Nasal B. parapertussis DNA (PCR) NOT DETECTED Nasal Coronavir 229E PCR NOT DETECTED Nasal Coronavir HKU1 PCR NOT DETECTED Nasal Coronavir NL63 PCR NOT DETECTED Nasal Coronavir OC43 PCR NOT DETECTED Nasal Enterovir/Rhinovir PCR NOT DETECTED Nasal Influenza B PCR NOT DETECTED Nasal Influenza A PCR NOT DETECTED Nasal Parainfluen 1 PCR NOT DETECTED Nasal Parainfluen 2 PCR NOT DETECTED Nasal Parainfluen 3 PCR NOT DETECTED Nasal Parainfluen 4 PCR NOT DETECTED Nasal RSV (PCR) NOT DETECTED Nasal B.pertussis DNA PCR NOT DETECTED Nasal C.pneumoniae (PCR) NOT DETECTED Jeff Human Metapneumo PCR NOT DETECTED Nasal M.pneumoniae (PCR) NOT DETECTED Nasal SARS-CoV-2 (PCR) NOT DETECTED Infectious Chase Assay NEGATIVE Group A Strep Rapid POSITIVE H 06/23/22 11:13 Sodium 139 Potassium 4.2 Chloride 105 Carbon Dioxide 26 Anion Gap 8.0 BUN 7 Creatinine 0.8 Estimated GFR (MDRD) 83 L Glucose 99 Calcium 9.0 Total Bilirubin 0.8 AST 18 ALT 19 Alkaline Phosphatase 90 Total Protein 7.6 Albumin 3.9 Globulin 3.7 Albumin/Globulin Ratio 1.1 Lipase 30 Nasal Adenovirus (PCR) Nasal B. parapertussis DNA (PCR) Nasal Coronavir 229E PCR Nasal Coronavir HKU1 PCR Nasal Coronavir NL63 PCR Nasal Coronavir OC43 PCR Nasal Enterovir/Rhinovir PCR Nasal Influenza B PCR Nasal Influenza A PCR Nasal Parainfluen 1 PCR Nasal Parainfluen 2 PCR Nasal Parainfluen 3 PCR Nasal Parainfluen 4 PCR Nasal RSV (PCR) Nasal B.pertussis DNA PCR Nasal C.pneumoniae (PCR) Jeff Human Metapneumo PCR Nasal M.pneumoniae (PCR) Nasal SARS-CoV-2 (PCR) Infectious Chase Assay Group A Strep Rapid PD Medical Decision Making - ED course Complexity details: re-evaluated patient (The patient's viral panel test is negative. Her rapid strep test is positive and this seems to account for her symptoms. We can treat it as strep pharyngitis. There is no signs of peritonsi llar involvement.), considered differential (Consideration of viral pharyngitis. She states it feels similar to mono in the past and we can test for that. Otherwise clinically does have strep appearance and we will do a rapid strep test.), d/w patient Departure - Departure Disposition: 01 Home, Self Care Clinical Impression: Acute streptococcal pharyngitis Condition: Stable Record reviewed to determine appropriate education?: Yes Instructions: ED Strep Pharyngitis Conf Prescriptions: dexAMETHasone [Decadron] 4 mg PO DAILY #5 tablet HYDROcod/ACETAM 5/325 [[place] 5/325] 1 ea PO Q6H PRN #10 tablet PRN Reason: Pain Penicillin V Potassium 500 mg PO QID #28 tablet Comments: Your blood test for mono is negative. Your strep screen is positive for group A strep and this would likely account for all your symptoms. The respiratory viral no swab test came back negative for the main viruses tested. The summary of this is it sounds like basically strep throat and I would a nticipate this improving in the shorter-term over the next few days and resolved by 4 to 5 days. Penicillin 4 times daily as directed for the next week. You can add anti- inflammatory of Decadron daily for the next several days as well. This helps the swelling component. Add Tylenol every 4-6 hours if needed for pain or hydrocodone/acetaminophen if needed for worse pain. I sent your prescriptions to [facility] pharmacy. Recheck if not improving well in the above timeframe. I am prescribing a short course of narcotic pain medication for you. These are potentially dangerous and addictive medications that should be used carefully. These medications may constipate you. Take an [id number] stool softener such as docusate twice daily with plenty of water while taking these medications. If you go 24 hours without a bowel movement, take [id number] MiraLAX, per package instructions. Do not drink or drive while taking these medications. If you received narcotic or sedating medications while in the emergency department do not drive for 24 hours. Store this medication in a safe, secure place and out of reach of children. It is a violation of federal law to give or sell this medication to another person or to use in a manner other than prescribed. The ED will not refill narcotic prescriptions, including prescriptions lost or stolen. You can dispose of unwanted medications at the [facility] office or at several pharmacies such as [email or web address].
[2022-06-23] MEDS ORDERED: IBUPROFEN 600 MG TABLET PO STA (11:02)
[2022-06-23] MEDS ORDERED: ACETAMINOPHEN 325 MG TABLET PO STA (11:02)
[2022-06-23] MEDS ORDERED: diphenhydrAMINE ELIXIR 25 MG/10 ML UDC PO STA (11:02)
[2022-06-23] MEDS ORDERED: CHERRY SYRUP 10 ML UDC PO ONE (11:03)
[2022-06-23] MEDS: DEXAMETHASONE 10 MG/ML VIAL PO STA (11:10)
[2022-06-23 11:21] LABS: RAPID STREP SCREEN POSITIVE (Negative)
[2022-06-23 11:25] LABS: INFECTIOUS MONONUCLEOSIS NEGATIVE (Negative)
[2022-06-23 11:31] LABS: ALBUMIN 3.9 g/dL (3.2-5.5); ALBUMIN/GLOBULIN RATIO 1.1 (1.0-2.2); BILIRUBIN,TOTAL 0.8 mg/dL (0.2-1.0); CREATININE 0.8 mg/dL (0.4-1.0); POTASSIUM 4.2 mmol/L (3.5-5.0); TOTAL PROTEIN 7.6 g/dL (6.7-8.2)
[2022-06-23 12:04] LABS: B. PARAPERTUSSIS- RESP PCR PAN NOT DETECTED; B. PERTUSSIS- RESP PCR PANEL NOT DETECTED; C. PNEUMONIAE- RESP PCR PANEL NOT DETECTED; CORONAVIRUS 229E-RESP PCR NOT DETECTED; CORONAVIRUS HKU1-RESP PCR NOT DETECTED; CORONAVIRUS NL63-RESP PCR NOT DETECTED; CORONAVIRUS OC43-RESP PCR NOT DETECTED; HUMAN METAPNEUMOVIRUS NOT DETECTED; INFLUENZA A- RESP PCR PANEL NOT DETECTED; INFLUENZA B - RESP PCR PANEL NOT DETECTED; M. PNEUMONIAE- RESP PCR PANEL NOT DETECTED; PARAINFLUENZA VIRUS 1 NOT DETECTED; PARAINFLUENZA VIRUS 2 NOT DETECTED; PARAINFLUENZA VIRUS 3 NOT DETECTED; PARAINFLUENZA VIRUS 4 NOT DETECTED; RHINOVIRUS/ENTEROVIRUS NOT DETECTED; RSV- RESP PCR PANEL NOT DETECTED; SARS-CoV-2 -RESP PCR PANEL NOT DETECTED
[2022-06-23] MEDS ORDERED: PENICILLIN VK 250 MG TABLET PO STA (12:15)
[2022-06-23 12:30] VITALS: BP 146/93
== END 2022-06-23 12:30 | disposition home or self-care (01) ==
LOC: ED 09:50
DX: J02.0 Streptococcal pharyngitis (principal); Z20.822 Contact with and (suspected) exposure to COVID-19; Z79.899 Other long term (current) drug therapy
CPT/HCPCS: 36415; 80053; 83690; 86308; 87430; 87633; 99283; 99284; A9270